=== PATIENT | female | born 1960 | race Caucasian/White ===

== ENCOUNTER 2018-07-26 12:49 | Inpatient (IN) | payer BC ==
[2018-07-26 13:48] LABS: Urine Blood 2+ (NEG); Urine Glucose NEGATIVE (NEG); Urine Protein TRACE (NEG); Urine pH 7.5 (5.0-7.0)
--- NOTE | 2018-07-26 13:56 | RAD REPORT ---
EXAM DESCRIPTION: RAD - Chest Single View - 07/26/2018 1:44 pm CLINICAL HISTORY: necrotizing lung mass Chest pain. COMPARISON: CHEST PA AND LAT 2 VIEW dated 07/24/2013; CHEST PA AND LAT 2 VIEW dated 07/16/2009 FINDINGS: Portable technique limits examination quality. Moderate-sized airspace opacity noted in the right mid lung, likely representing airspace consolidati on/pneumonia. The heart is normal in size. No displaced fractures.
[2018-07-26 14:01] LABS: Urine RBC >50 /HPF (NONE SEEN)
[2018-07-26 14:02] LABS: Urine Bacteria <20 /HPF (<20); Urine Culture Reflex Order NOT NEEDED
[2018-07-26 14:14] LABS: Protime INR 1.17
[2018-07-26 14:22] LABS: Absolute Lymphocytes (CBC) 1.8 K/uL (0.7-4.9); Absolute Monocytes 0.6 K/uL (0.1-1.3); Absolute Neutrophil 11.3 K/uL (1.8-8.0); Basophils % 0.7 % (0-1.3); Eosinophils % 0.7 % (0-4.4); Lymphocytes % 12.7 % (15.3-44.8); MPV 5.9 fL (7.6-11.3); Monocytes % 4.1 % (3.3-12.3); RBC Red Blood Cell Count 3.72 M/uL (3.86-4.86)
[2018-07-26 14:29] LABS: ALT/SGPT 16 U/L (12-78); AST/SGOT 16 U/L (15-37); Albumin 2.5 g/dL (3.4-5.0); Alkaline Phosphatase 111 U/L (45-117); BUN Blood Urea Nitrogen 8 mg/dL (7-18); Bicarbonate 30 mmol/L (21-32); Bilirubin Direct 0.1 mg/dL (0-0.2); Bilirubin Total 0.3 mg/dL (0.2-1.0); Creatine Phosphokinase 62 U/L (26-192); Glucose Level 100 mg/dL (74-106); Lipase 77 U/L (73-393); Potassium 3.6 mmol/L (3.5-5.1); Protein, Total 7.3 g/dL (6.4-8.2); Sodium Level 136 mmol/L (136-145); Troponin (Emerg Dept Use Only) < 0.02 ng/mL (0.0-0.045)
--- NOTE | 2018-07-26 15:29 | ER ---
Nurse's Notes [facility] Name: Judith Lyons Age: 57 yrs Sex: Female : 1960 Arrival Date: 07/26/2018 Time: 12:51 Bed 28 Private MD: Moisés Flores Diagnosis: Necrotizing Lung Mass Presentation: 07/26 13:02 Presenting complaint: Patient states: sent here for abnormal CT. Pt reports being sick sv for about 1.5 months. Transition of care: patient was not received from another setting of care. Onset of symptoms was May 2017. Care prior to arrival: None. 13:02 Method Of Arrival: Ambulatory sv 13:02 Acuity: MIGUELITO 3 sv 13:15 Risk Assessment: Do you want to hurt yourself or someone else?. Initial Sepsis Screen: hb Does the patient meet any 2 criteria? No. Patient's initial sepsis screen is negative. Does the patient have a suspected source of infection? No. Patient's initial sepsis screen is negative. Historical: - Allergies: 13:03 No Known Allergies; sv - PSHx: 13:03 neck surgery with 3 metal pins; ; sv - Immunization history:: Adult Immunizations up to date. - Social history:: Smoking status: Patient/guardian denies using tobacco. - Ebola Screening: : No symptoms or risks identified at this time. Screenin:43 Abuse screen: Denies threats or abuse. Denies injuries from another. Nutritional hb screening: No deficits noted. Tuberculosis screening: Intervention for positive screen: Dr. Flynn aware, isolation precautions implemented, pt and family educated with teach back verification. Fall Risk None identified. Assessment: 14:00 General: Appears in no apparent distress. Behavior is calm, cooperative. Pain: Denies hb pain. Neuro: Level of Consciousness is awake, alert, obeys commands, Oriented to person, place, time, situation. Cardiovascular: Heart tones S1 S2 present Capillary refill < 3 seconds Patient's skin is warm and dry. Respiratory: Airway is patent Respiratory effort is even, unlabored, Respiratory pattern is regular, symmetrical, Breath sounds are coarse. GI: No signs and/or symptoms were reported involving the gastrointestinal system. : No signs and/or symptoms were reported regarding the genitourinary system. EENT: No signs and/or symptoms were reported regarding the EENT system. Derm: Skin is intact, is healthy with good turgor. Musculoskeletal: No signs and/or symptoms reported regarding the musculoskeletal system. Capillary refill < 3 seconds. 14:16 Reassessment: Airborne Precautions implemented, pt and family educated re:isolation hb precautions, verbalized understanding. Family members relocated to ante room and donned appropriate PPE before reentering pt room. 15:00 Reassessment: Patient appears in no apparent distress at this time. No changes from hb previously documented assessment. Patient and/or family updated on plan of care and expected duration. Pain level reassessed. Patient is alert, oriented x 3, equal unlabored respirations, skin warm/dry/pink. 16:00 Reassessment: Patient appears in no apparent distress at this time. No changes from hb previously documented assessment. Patient and/or family updated on plan of care and expected duration. Pain level reassessed. Patient is alert, oriented x 3, equal unlabored respirations, skin warm/dry/pink. 16:44 Reassessment: Attempted to call report to floor, receiving nurse is unavailable at this hb time. 17:00 Reassessment: Patient appears in no apparent distress at this time. No changes from hb previously documented assessment. Patient and/or family updated on plan of care and expected duration. Pain level reassessed. Patient is alert, oriented x 3, equal unlabored respirations, skin warm/dry/pink. 17:29 Reassessment: Attempted to call report to floor, receiving nurse will call back in 5 hb per Tawny RESENDEZ. Vital Signs: 13:03 BP 123 / 74; Pulse 86; Resp 18; Temp 98.1; Pulse Ox 100% ; Weight 48.99 kg; Height 5 sv ft. 2 in. (157.48 cm); Pain 0/10; 14:00 BP 126 / 76; Pulse 86; Resp 17; Pulse Ox 100% on R/A; hb 15:00 BP 122 / 72; Pulse 72; Resp 18; Pulse Ox 99% on R/A; hb 16:00 BP 130 / 76; Pulse 88; Resp 18; Pulse Ox 100% on R/A; hb 13:03 Body Mass Index 19.75 (48.99 kg, 157.48 cm) sv ED Course: 12:51 Patient arrived in ED. as 12:52 Moisés Flores MD is Private Physician. as 13:03 Triage completed. sv 13:04 Chin Flynn MD is Attending Physician. kdr 13:04 Arm band placed on. sv 13:35 First set of blood cultures drawn by ny, Urine collected: clean catch specimen, cloudy. tm3 13:42 Chest Single View XRAY In Process Unspecified. EDMS 13:42 X-ray completed. Portable x-ray completed in exam room. Patient tolerated procedure jb2 well. 13:56 Anna Cooper, RN is Primary Nurse. hb 13:56 Patient has correct armband on for positive identification. Placed in gown. Bed in low hb position. Call light in reach. Side rails up X 1. 13:56 Inserted saline lock: 22 gauge in left forearm, using aseptic technique. Blood hb collected. 15:27 Angelo Borrero DO is Hospitalizing Provider. kdr 17:28 EKG done, by set up mold technician. reviewed by Chin Flynn MD. sm3 17:40 No provider procedures requiring assistance completed. Patient admitted, IV remains in hb place. Administered Medications: No medications were administered Outcome: 15:28 Decision to Hospitalize by Provider. kdr 17:40 Admitted to Tele accompanied by tech, family with patient, via wheelchair, room 417, with chart, Report called to Carla RESENDEZ 17:40 Condition: stable 17:40 Instructed on the need for admit, Demonstrated understanding of instructions. 18:00 Patient left the ED. hb Signatures: Dispatcher [employer] EDNE Gurmeet Virk tm3 Cathleen Nick RN RN Chin Flynn MD MD [facility] Gerry Martinez jb2 Jalyn Hale as Anna Cooper, RN RN Lisa Dodge sm3 Corrections: (The following items were deleted from the chart) 16:54 16:43 Tuberculosis screening: No symptoms or risk factors identified. hb hb
--- NOTE | 2018-07-26 15:29 | EDPHYS ---
Physician Documentation [facility] Name: Judith Lyons Age: 57 yrs Sex: Female : 1960 Arrival Date: 07/26/2018 Time: 12:51 Bed 28 Private MD: Moisés Flores ED Physician Chin Flynn HPI: 07/26 15:29 This 57 yrs old Female presents to ER via Ambulatory with complaints of kdr Abnormal CT. 15:29 The patient or guardian reports cough, difficulty breathing. Onset: The kdr symptoms/episode began/occurred gradually, 1.5 month(s) ago. Severity of symptoms: At their worst the symptoms were mild, moderate, just prior to arrival, in the emergency department the symptoms are unchanged. Modifying factors: The symptoms are alleviated by nothing, the symptoms are aggravated by exertion. Associated signs and symptoms: Pertinent positives:. The patient has not experienced similar symptoms in the past. The patient has been recently seen by a physician: The patient has been on two rounds of abx and still with URI s/s and productive cough. Also has intermittent fevers. Historical: - Allergies: 13:03 No Known Allergies; sv - PSHx: 13:03 neck surgery with 3 metal pins; ; sv - Immunization history:: Adult Immunizations up to date. - Social history:: Smoking status: Patient/guardian denies using tobacco. - Ebola Screening: : No symptoms or risks identified at this time. ROS: 15:29 Constitutional: Negative for fever, chills, and weight loss, Eyes: Negative for injury, kdr pain, redness, and discharge, Neck: Negative for injury, pain, and swelling, Cardiovascular: Negative for chest pain, palpitations, and edema, Abdomen/GI: Negative for abdominal pain, nausea, vomiting, diarrhea, and constipation, Back: Negative for injury and pain, : Negative for injury, bleeding, discharge, and swelling, MS/Extremity: Negative for injury and deformity, Skin: Negative for injury, rash, and discoloration, Neuro: Negative for headache, weakness, numbness, tingling, and seizure activity. Psych: Negative for depression, anxiety, suicide ideation, homicidal ideation, and hallucinations, Allergy/Immunology: Negative for hives, rash, and allergies, Endocrine: Negative for neck swelling, polydipsia, polyuria, polyphagia, and marked weight changes, Hematologic/Lymphatic: Negative for swollen nodes, abnormal bleeding, and unusual bruising. 15:29 Respiratory: Positive for cough, with white sputum, dyspnea on exertion, shortness of breath, on exertion. Exam: 15:29 Constitutional: This is a well developed, well nourished patient who is awake, alert, kdr and in no acute distress. Head/Face: Normocephalic, atraumatic. Eyes: Pupils equal round and reactive to light, extra-ocular motions intact. Lids and lashes normal. Conjunctiva and sclera are non-icteric and not injected. Cornea within normal limits. Periorbital areas with no swelling, redness, or edema. Neck: Trachea midline, no thyromegaly or masses palpated, and no cervical lymphadenopathy. Supple, full range of motion without nuchal rigidity, or vertebral point tenderness. No Meningismus. Chest/axilla: Normal chest wall appearance and motion. Nontender with no deformity. No lesions are appreciated. Cardiovascular: Regular rate and rhythm with a normal S1 and S2. No gallops, murmurs, or rubs. Normal PMI, no JVD. No pulse deficits. Abdomen/GI: Soft, non-tender, with normal bowel sounds. No distension or tympany. No guarding or rebound. No evidence of tenderness throughout. Back: No spinal tenderness. No costovertebral tenderness. Full range of motion. Skin: Warm, dry with normal turgor. Normal color with no rashes, no lesions, and no evidence of cellulitis. MS/ Extremity: Pulses equal, no cyanosis. Neurovascular intact. Full, normal range of motion. Neuro: Awake and alert, GCS 15, oriented to person, place, time, and situation. Cranial nerves II-XII grossly intact. Motor strength 5/5 in all extremities. Sensory grossly intact. Cerebellar exam normal. Normal gait. Psych: Awake, alert, with orientation to person, place and time. Behavior, mood, and affect are within normal limits. 15:29 Respiratory: the patient does not display signs of respiratory distress, Respirations: no acute changes, Breath sounds: rales, rhonchi, that are mild, are scattered. Vital Signs: 13:03 BP 123 / 74; Pulse 86; Resp 18; Temp 98.1; Pulse Ox 100% ; Weight 48.99 kg; Height 5 sv ft. 2 in. (157.48 cm); Pain 0/10; 14:00 BP 126 / 76; Pulse 86; Resp 17; Pulse Ox 100% on R/A; hb 15:00 BP 122 / 72; Pulse 72; Resp 18; Pulse Ox 99% on R/A; hb 16:00 BP 130 / 76; Pulse 88; Resp 18; Pulse Ox 100% on R/A; hb 13:03 Body Mass Index 19.75 (48.99 kg, 157.48 cm) sv MDM: 15:28 Patient medically screened. kdr 15:29 Data reviewed: vital signs, nurses notes, lab test result(s), radiologic studies. kdr Counseling: I had a detailed discussion with the patient and/or guardian regarding: the historical points, exam findings, and any diagnostic results supporting the discharge/admit diagnosis, lab results, radiology results. Physician consultation: Angelo Borrero DO. 07/26 13:22 Order name: Basic Metabolic Panel; Complete Time: 14:41 kdr 07/26 13:22 Order name: Blood Culture Adult (2) kdr 07/26 13:22 Order name: CBC with Diff; Complete Time: 14:41 kdr 07/26 13:22 Order name: Ckmb; Complete Time: 14:41 kdr 07/26 13:22 Order name: CPK; Complete Time: 14:41 kdr 07/26 13:22 Order name: Lactate; Complete Time: 14:28 kdr 07/26 13:22 Order name: LFT's; Complete Time: 14:41 kdr 07/26 13:22 Order name: Lipase; Complete Time: 14:41 kdr 07/26 13:22 Order name: Procalcitonin kdr 07/26 13:22 Order name: Protime (+inr); Complete Time: 14:28 kdr 07/26 13:22 Order name: Ptt, Activated; Complete Time: 14:28 kdr 07/26 13:22 Order name: Troponin (emerg Dept Use Only); Complete Time: 14:41 kdr 07/26 13:22 Order name: Urine Microscopic Only; Complete Time: 14:28 kdr 07/26 13:46 Order name: Urine Dipstick--Ancillary (enter results); Complete Time: 14:28 eb 07/26 13:22 Order name: Chest Single View XRAY; Complete Time: 14:28 kdr 07/26 13:22 Order name: Accucheck; Complete Time: 17: [facility] 07/26 13:22 Order name: Cardiac monitoring; Complete Time: 17: [facility] 07/26 13:22 Order name: EKG - Nurse/Tech; Complete Time: 17: [facility] 07/26 13:22 Order name: IV Saline Lock - Large Bore; Complete Time: 17: [facility] 07/26 13:22 Order name: Labs collected and sent; Complete Time: 17: [facility] 07/26 13:22 Order name: O2 Per Protocol; Complete Time: 17: [facility] 07/26 13:22 Order name: O2 Sat Monitoring; Complete Time: 17: [facility] 07/26 13:22 Order name: Urine Dipstick-Ancillary (obtain specimen); Complete Time: 17: [facility] 07/26 14:28 Order name: Sputum Culture [facility] 07/26 14:40 Order name: UDS kdr Administered Medications: No medications were administered Disposition: 07/26/18 15:28 Hospitalization ordered by Angelo Borrero for Inpatient Admission. Preliminary diagnosis is Necrotizing Lung Mass. - Bed requested for Telemetry/MedSurg (Inpatient). - Status is Inpatient Admission. hb - Condition is Fair. - Problem is an ongoing problem. - Symptoms have improved. UTI on Admission? No Signatures: Dispatcher [employer] Cathleen Bobo RN RN Chin Flynn MD MD [facility] Anna Cooper RN RN Vicky Walls Corrections: (The following items were deleted from the chart) 15:49 15:28 Hospitalization Ordered by Angelo Borrero DO for Inpatient Admission. Preliminary eb diagnosis is Necrotizing Lung Mass. Bed requested for Telemetry/MedSurg (Inpatient). Status is Inpatient Admission. Condition is Fair. Problem is an ongoing problem. Symptoms have improved. UTI on Admission? No. kdr 17:02 15:49 07/26/2018 15:28 Hospitalization Ordered by Angelo Borrero DO for Inpatient eb Admission. Preliminary diagnosis is Necrotizing Lung Mass. Bed requested for Telemetry/MedSurg (Inpatient). Status is Inpatient Admission. Condition is Fair. Problem is an ongoing problem. Symptoms have improved. UTI on Admission? No. eb 18:00 17:02 07/26/2018 15:28 Hospitalization Ordered by Angelo Borrero DO for Inpatient Admission. Preliminary diagnosis is Necrotizing Lung Mass. Bed requested for Telemetry/MedSurg (Inpatient). Status is Inpatient Admission. Condition is Fair. Problem is an ongoing problem. Symptoms have improved. UTI on Admission? No. eb
--- NOTE | 2018-07-26 15:54 | P.HP ---
Certification for Inpatient Patient admitted to: Inpatient With expected LOS: >2 Midnights Patient will require the following post-hospital care: None Practitioner: I am a practitioner with admitting privileges, knowledge of patient current condition, hospital course, and medical plan of care. Services: Services provided to patient in accordance with Admission requirements found in Title 42 Section 412.3 of the Code of Federal Regulations Patient History Date of Service: 07/26/18 Primary Care Provider: Dr. Flores Reason for admission: Shortness of breath, chest pain and cough History of Present Illness: 57-year-old female presented to emergency room with increasing shortness of breath, chest pain and cough. Patient with history of restless leg syndrome, tobacco abuse, GERD, neuropathy and anxiety. Patient reports that she start to have increasing cough and congestion at the end of May. She was seen by her PCP and found to have pneumonia on chest x-ray. She was given doxycycline for 10 days. She went back thereafter for followup. She continue to have increasing cough and chest pain. She was given another round of doxycycline and given Symbicort. She continued to have increased cough, congestion and shortness of breath. She occasionly would have chest pain to the right side. She reported some chills, fatigue and fever from time to time. Last week she had 1 episode of hempytosis. Today she was sent for CT scan. CT scan was abnormal. She was told to go to the ER for further evaluation. In the ER patient evaluated. White count 13.8, hemoglobin 9.5. Pro calcitonin unremarkable. BMP stable. Troponin unremarkable. CT chest angiogram scan revealed moderate size airspace consolidation in the right middle lobe and anterior aspect of the right lower lobe. Several rounded diminished fluid density collections present in the consolidated lung measuring about 4.9 x 3.4 cm in size. This likely represented areas of necrosis. No pneumothorax noted. Mild prominent lymph nodes were also present in the right hilum and pretracheal location measuring 11 mm in size. the patient was admitted for further evaluation. I saw the patient ER, she did not appear septic. She did have increased cough and mild chest pain. Case discussed with pulmonology who agreed with admission for further treatment and evaluation. Patient smokes about a pack per day for over 30 years. There is family history of esophageal cancer and Sanchez's esophagus. Previous records indicate history of DVT in 2013. She was treated with anti coagulation therapy. Allergies No Known Allergies Allergy (Verified 04/08/14 03:28) Home medications list reviewed: Yes Home Medications: Lisdexamfetamine Dimesylate [Vyvanse] 40 mg PO DAILY 04/08/14 Rivaroxaban [Xarelto*] 15 mg PO BID #42 tablet 04/08/14 - Past Medical/Surgical History Diabetic: No -: Restless leg syndrome -: Tobacco abuse -: Degenerative disc and joint disease -: GERD -: Neuropathy -: Anxiety -: History of DVT in 2013, treated -: Neck surgery -: -: Breast augmentation -: Fatty tumor removed to the left chest Psychosocial/ Personal History: Patient is - Family History Father -: Cancer (Esophageal cancer) Notes: Esophageal cancer Brother -: Cancer (Sanchez's esophagus) - Social History Smoking Status: Heavy Tobacco smoker (>10 cigarettes/day) Counseled patient to stop smoking for: less than 10 minutes Smoking therapy provided: Yes Patient receptive to therapy: Yes Alcohol use: Yes CD- Drugs: No Caffeine use: Yes Place of Residence: Home Review of Systems General: Fever, Chills, Sweats, Malaise, As per HPI Eyes: Unremarkable ENT: Unremarkable Respiratory: Cough, Shortness of Breath, SOB with Excertion, Sputum, As per HPI Cardiovascular: Chest Pain, Unremarkable Gastrointestinal: Nausea, As per HPI Musculoskeletal: Unremarkable Integumentary: Unremarkable Neurological: Unremarkable Lymphatics: Unremarkable Physical Examination - Physical Exam General: Alert, In no apparent distress, Oriented x3, Cooperative, Other (Very anxious) HEENT: Atraumatic, Normocephalic, Mucous membr. moist/pink Neck: Supple, No Thyromegaly Respiratory: Diminished (Diminished to the right side) Cardiovascular: Normal pulses, Regular rate/rhythm Gastrointestinal: Normal bowel sounds, Soft and benign, Non-distended, No tenderness, No masses, No rebound, No guarding Musculoskeletal: No contractures, No erythema, No tenderness, No warmth Integumentary: No tenderness/swelling, No erythema, No warmth, No cyanosis Neurological: Normal speech, Normal strength at 5/5 x4 extr, Normal tone, Normal affect - Studies Laboratory Data (last 24 hrs) 07/26/18 13:54: PT 13.7 H, INR 1.17, APTT 36.7 07/26/18 13:54: WBC 13.8 H, Hgb 9.5 L, Hct 29.0 L, Plt Count 646 H 07/26/18 13:54: Sodium 136, Potassium 3.6, BUN 8, Creatinine 0.42 L, Glucose 100 , Total Bilirubin 0.3, AST 16, ALT 16, Alkaline Phosphatase 111, Lipase 77 Assessment and Plan - Plan Impression: Right-sided chest pain, shortness of breath, cough with one episode of hemopytosis secondary to moderate size airspace consolidation to the right middle lobe and anterior right lower lobe with prominent lymph nodes to the right hilum and pretracheal location likely unresolved pneumonia verses other etiology, complicated with underlying COPD and tobacco abuse Anemia likely iron deficiency GERD Degenerative joint and disc disease with neuropathy Restless leg syndrome History of DVT in the past, treated Anxiety Plan: Right-sided chest pain, shortness of breath, cough with one episode of hemopytosis secondary to moderate size airspace consolidation to the right middle lobe and anterior right lower lobe with prominent lymph nodes to the right hilum and pretracheal location likely unresolved pneumonia verses other etiology, complicated with underlying COPD and tobacco abuse: Patient will be admitted for further evaluation and treatment. Case discussed with pulmonology. Will obtain blood, sputum cultures. Will obtain cultures for ABF. Will start IV vancomycin and Zosyn. Will continue to her monitor progress. Will maintain sats above 90%. Will start COPD medication. Tobacco cessation addressed in detail. Will recheck chest x-ray and lab tomorrow. Await further recommendations from pulmonology. If no improvement patient may require bronchoscopy. Anemia likely iron deficiency: Will evaluate for iron deficiency anemia. GERD: Will provide Protonix. Family history of Sanchez's esophagus and esophageal cancer noted. Degenerative joint and disc disease with neuropathy: Restart gabapentin. Restless leg syndrome: Will need to restart home medication-Mirapex History of DVT in the past, treated: Try to obtain more information. On previous information PCP was to get evaluation for autoimmune disease. Anxiety: Will provide medication. Discharge Plan: Home Plan to discharge in: Greater than 2 days - Advance Directives Does patient have a Living Will: No Does patient have a Durable POA for Healthcare: No - Code Status/Comfort Care Code Status Assessed: Yes (Patient full code.) Time Spent Managing Pts Care (In Minutes): 55
[2018-07-26] MEDS ORDERED: ONDANSETRON 4 MG/2 ML VIAL IV PRN (17:51)
[2018-07-26] MEDS ORDERED: ALBUTEROL 2.5 MG/3 ML NEB SOL NEB PRN (17:51)
[2018-07-26] MEDS ORDERED: BENZONATATE 100 MG CAP PO PRN (17:51)
[2018-07-26] MEDS ORDERED: ACETAMINOPHEN 500 MG TAB PO PRN (17:51)
[2018-07-26] MEDS ORDERED: ALPRAZOLAM 0.25 MG TABLET PO PRN (17:51)
[2018-07-26] MEDS: ENOXAPARIN 40 MG/0.4 ML SQ SCH (18:00)
[2018-07-26 18:38] LABS: Ferritin 180.2 ng/mL (8-388); Thyroid Stimulating Hormone 1.83 uIU/mL (0.360-3.740)
[2018-07-26 18:43] VITALS: BMI 19.2
[2018-07-26] MEDS: PIPER/TAZO/NS 3.375gm 3.375 GM/100 ML BAG IVPB SCH (18:45)
[2018-07-26] MEDS: NA CHLORIDE 0.9% 1,000 ML IV SCH (18:45)
[2018-07-26] MEDS: ARFORMOTEROL TARTRATE 15 MCG/2 ML VIAL.NEB NEB SCH (20:00)
[2018-07-26] MEDS ORDERED: VANCOMYCIN 1.25 GM in NA CHLORIDE 0.9% 250 ML IVPB ONE (21:00)
[2018-07-26] MEDS: GABAPENTIN 300 MG CAP PO SCH (21:15)
[2018-07-26] MEDS: PRAMIPEXOLE 1 MG TAB PO SCH (21:15)
[2018-07-26] MEDS: GUAIFENESIN 600 MG SA TAB PO SCH (21:16)
[2018-07-27] MEDS: PIPER/TAZO/NS 3.375gm 3.375 GM/100 ML BAG IVPB SCH ×3 (01:05→16:53)
[2018-07-27 06:02] LABS: BUN Blood Urea Nitrogen 6 mg/dL (7-18); Bicarbonate 29 mmol/L (21-32); Glucose Level 89 mg/dL (74-106); Magnesium 1.7 mg/dL (1.8-2.4); Potassium 3.7 mmol/L (3.5-5.1); Sodium Level 137 mmol/L (136-145)
[2018-07-27 06:10] LABS: Absolute Lymphocytes (CBC) 2.3 K/uL (0.7-4.9); Absolute Monocytes 0.6 K/uL (0.1-1.3); Absolute Neutrophil 8.2 K/uL (1.8-8.0); Basophils % 1.2 % (0-1.3); Eosinophils % 1.4 % (0-4.4); Hematocrit 29.5 % (36.0-45.0); Lymphocytes % 19.9 % (15.3-44.8); MPV 6.3 fL (7.6-11.3); RBC Red Blood Cell Count 3.84 M/uL (3.86-4.86)
[2018-07-27] MEDS: NA CHLORIDE 0.9% 1,000 ML IV SCH (07:11)
--- NOTE | 2018-07-27 07:15 | EKG ---
Test Date: 2018-07-26 Test Time: 17:11:10 Patient Relations Specialist: MONY MEASUREMENT RESULTS: Intervals: Rate: 73 SD: 144 QRSD: 90 QT: 380 QTc: 418 [place]: P: 66 SD: 144 QRS: 51 T: 61 INTERPRETIVE STATEMENTS: Normal sinus rhythm Normal ECG Compared to ECG 04/07/2014 23:06:42 ST (T wave) deviation no longer present Electronically Signed On 07-27-18 07:14:57 PHARMACY DISTRICT MANAGER by Morro Brewer
[2018-07-27] MEDS: PANTOPRAZOLE 40MG TABLET PO SCH ×2 (07:30→09:17)
[2018-07-27] MEDS ORDERED: MAGNESIUM SULFATE 1 gm IVPB 1 GM/100 ML BAG IV ONE (07:41)
[2018-07-27] MEDS ORDERED: POTASSIUM CL SA 10 MEQ TAB PO ONE (08:00)
[2018-07-27] MEDS: IPRATROPIUM BROM 0.5MG/2.5ML NEB PRN ×2 (08:02→19:55)
[2018-07-27] MEDS: ARFORMOTEROL TARTRATE 15 MCG/2 ML VIAL.NEB NEB SCH ×2 (08:02→19:55)
[2018-07-27 08:04] LABS: Barbiturates NEGATIVE (NEGATIVE); Benzodiazepines NEGATIVE (NEGATIVE); Cocaine NEGATIVE (NEGATIVE); METHAMPHETAM POSITIVE (NEGATIVE); Methadone NEGATIVE (NEGATIVE); Opiates NEGATIVE (NEGATIVE); Phencyclidine NEGATIVE (NEGATIVE); THC Cannibis POSITIVE (NEGATIVE)
--- NOTE | 2018-07-27 08:06 | RAD REPORT ---
EXAM DESCRIPTION: RAD - Chest Pa And Lat (2 Views) - 07/27/2018 6:29 am CLINICAL HISTORY: Lung mass, shortness of breath COMPARISON: AP chest July 26, CT chest July 26 TECHNIQUE: PA and lateral views of the chest were obtained. FINDINGS: The lungs are normal volume. There is baseline hyperexpansion and scattered fibrotic anderson e. Mass density at the right hilum extending into the right upper lobe has not changed. Heart size is normal and central vasculature is within normal limits. No pleural effusion or pneumothorax seen. No acute bony finding noted. No aortic abnormality. IMPRESSION: Right lung field mass density stable from prior day study. No new or progressive finding .
[2018-07-27] MEDS: DULOXETINE 30 MG CAP PO SCH (09:17)
[2018-07-27] MEDS: GABAPENTIN 300 MG CAP PO SCH ×2 (09:17→21:00)
[2018-07-27] MEDS: ENOXAPARIN 40 MG/0.4 ML SQ SCH (09:18)
[2018-07-27] MEDS: GUAIFENESIN 600 MG SA TAB PO SCH ×2 (09:20→22:04)
[2018-07-27 09:53] VITALS: O2SAT 97
[2018-07-27] MEDS: VANCOMYCIN/NS 1 gm 1 GM/250 ML BAG IV SCH ×2 (11:26→22:05)
--- NOTE | 2018-07-27 13:21 | P.PN ---
Subjective Date of Service: 07/27/18 Primary Care Provider: Dr. Flores Chief Complaint: Shortness of breath, chest pain and cough Subjective: Improving Physical Examination - Vital Signs Temperature: 99.7 F Blood Pressure: 108/51 Pulse: 79 Respirations: 20 Pulse Ox (%): 97 - Physical Exam General: Alert, In no apparent distress, Oriented x3, Cooperative HEENT: Atraumatic Neck: Supple Respiratory: Clear to auscultation bilaterally, Normal air movement Cardiovascular: Normal pulses, Regular rate/rhythm Gastrointestinal: Normal bowel sounds, Soft and benign, Non-distended, No tenderness, No masses, No rebound, No guarding Musculoskeletal: No erythema, No tenderness, No warmth Integumentary: No tenderness/swelling, No erythema, No warmth, No cyanosis Neurological: Normal speech, Normal strength at 5/5 x4 extr, Normal tone, Normal affect - Studies Laboratory Data (last 24 hrs) 07/26/18 13:54: PT 13.7 H, INR 1.17, APTT 36.7 07/26/18 13:54: WBC 13.8 H, Hgb 9.5 L, Hct 29.0 L, Plt Count 646 H 07/26/18 13:54: Sodium 136, Potassium 3.6, BUN 8, Creatinine 0.42 L, Glucose 100 , Total Bilirubin 0.3, AST 16, ALT 16, Alkaline Phosphatase 111, Lipase 77 Medications List Reviewed: Yes Assessment & Plan Discharge Plan: Home Plan to discharge in: 24 Hours Physician Review Additional Text: Impression: Right-sided chest pain, shortness of breath, cough with one episode of hemopytosis secondary to moderate size airspace consolidation to the right middle lobe and anterior right lower lobe with prominent lymph nodes to the right hilum and pretracheal location likely unresolved pneumonia verses other etiology, complicated with underlying COPD and tobacco abuse Anemia likely iron deficiency GERD 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 X-ray stable. Will discuss with pulmonology. Sputum cultures obtained. Likely discharge in the next 1-2 days. Anemia likely iron deficiency: Patient with iron deficiency. Will start iron supplementation GERD: Will provide Protonix. Family history of Sanchez's esophagus and esophageal cancer noted. 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 Restless leg syndrome: Continue with home medication History of DVT in the past, treated: Try to obtain more information. On previous information PCP was to get evaluation for autoimmune disease. Anxiety: Will provide medication. Time Spent Managing Pts Care (In Minutes): 55
[2018-07-27] MEDS ORDERED: MELATONIN 5 MG TABLET PO PRN (13:30)
[2018-07-27] MEDS ORDERED: HOME MED 1 EA UNK (Gabapentin [Gabapentin] 600 MG) PO SCH (14:00)
[2018-07-27] MEDS: PRAMIPEXOLE 1 MG TAB PO SCH (21:00)
[2018-07-27] MEDS: FERROUS SULFATE 325 MG TAB PO SCH (22:04)
[2018-07-28] MEDS: PIPER/TAZO/NS 3.375gm 3.375 GM/100 ML BAG IVPB SCH ×2 (00:26→10:02)
[2018-07-28 05:59] LABS: Absolute Lymphocytes (CBC) 2.2 K/uL (0.7-4.9); Absolute Monocytes 0.6 K/uL (0.1-1.3); Absolute Neutrophil 9.8 K/uL (1.8-8.0); Eosinophils % 1.4 % (0-4.4); Hematocrit 27.2 % (36.0-45.0); Lymphocytes % 17.2 % (15.3-44.8); MPV 6.1 fL (7.6-11.3); Monocytes % 4.9 % (3.3-12.3); RBC Red Blood Cell Count 3.51 M/uL (3.86-4.86)
[2018-07-28 06:16] LABS: BUN Blood Urea Nitrogen 9 mg/dL (7-18); Bicarbonate 29 mmol/L (21-32); Glucose Level 87 mg/dL (74-106); Potassium 4.1 mmol/L (3.5-5.1); Sodium Level 138 mmol/L (136-145)
[2018-07-28] MEDS: ARFORMOTEROL TARTRATE 15 MCG/2 ML VIAL.NEB NEB SCH (08:00)
[2018-07-28] MEDS: PANTOPRAZOLE 40MG TABLET PO SCH (08:30)
[2018-07-28] MEDS: GUAIFENESIN 600 MG SA TAB PO SCH (10:00)
[2018-07-28] MEDS: DULOXETINE 30 MG CAP PO SCH (10:03)
[2018-07-28] MEDS: ENOXAPARIN 40 MG/0.4 ML SQ SCH (10:04)
[2018-07-28] MEDS: FERROUS SULFATE 325 MG TAB PO SCH (10:04)
[2018-07-28] MEDS: GABAPENTIN 300 MG CAP PO SCH (10:04)
[2018-07-28] MEDS: VANCOMYCIN/NS 1 gm 1 GM/250 ML BAG IV SCH (10:05)
--- NOTE | 2018-07-28 10:12 | P.DS ---
Admission Date: 07/26/18 Discharge Date: 07/28/18 Primary Care Provider: Dr. Flores Disposition: ROUTINE DISCHARGE Discharge Condition: GOOD Reason for Admission: Shortness of breath, chest pain and cough Consultations: Pulmonary-Dr. Ruiz Procedures: CXR: COMPARISON: AP chest July 26, CT chest July 26 TECHNIQUE: PA and lateral views of the chest were obtained. FINDINGS: The lungs are normal volume. There is baseline hyperexpansion and scattered fibrotic change. Mass density at the right hilum extending into the right upper lobe has not changed. Heart size is normal and central vasculature is within normal limits. No pleural effusion or pneumothorax seen. No acute bony finding noted. No aortic abnormality. IMPRESSION: Right lung field mass density stable from prior day study. No new or progressive finding. 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 Patient with history of restless leg syndrome, tobacco abuse, GERD, neuropathy and anxiety. Patient reports that she start to have increasing cough and congestion at the end of May. She was seen by her PCP and found to have pneumonia on chest x-ray. She was given doxycycline for 10 days. She went back thereafter for followup. She continue to have increasing cough and chest pain. She was given another round of doxycycline and given Symbicort. She continued to have increased cough, congestion and shortness of breath. She occasionly would have chest pain to the right side. She reported some chills, fatigue and fever from time to time. Last week she had 1 episode of hempytosis. Today she was sent for CT scan. CT scan was abnormal. She was told to go to the ER for further evaluation. In the ER patient evaluated. White count 13.8, hemoglobin 9.5. Pro calcitonin unremarkable. BMP stable. Troponin unremarkable. CT chest angiogram scan revealed moderate size airspace consolidation in the right middle lobe and anterior aspect of the right lower lobe. Several rounded diminished fluid density collections present in the consolidated lung measuring about 4.9 x 3.4 cm in size. This likely represented areas of necrosis. No pneumothorax noted. Mild prominent lymph nodes were also present in the right hilum and pretracheal location measuring 11 mm in size. the patient was admitted for further evaluation. I saw the patient ER, she did not appear septic. She did have increased cough and mild chest pain. Case discussed with pulmonology who agreed with admission for further treatment and evaluation. Patient smokes about a pack per day for over 30 years. There is family history of esophageal cancer and Sanchez's esophagus. Previous records indicate history of DVT in 2013. She was treated with anti coagulation therapy. Hospital Course: Patient presented with right-sided chest pain, shortness of breath and cough. She also had an episode of hemopytosis. This was related to a moderate sized airspace consolidation to the right middle lobe and anterior right lobe with prominent lymph nodes to the right hilum and pretracheal location secondary to likely unresolved strep. pneumonia. Patient had been treated recently with Doxycycline twice, but failed treatment. At discharge she does not require home oxygen. She is without any significant shortness of breath. Sputum cultures obtained. At discharge she will continue with Levaquin 750 mg daily for 7 days. The patient will also be provided with Mucinex 600 mg twice daily as needed for congestion, Tessalon Perles 100 mg 3 times a day, and Pro air 2 puffs 3 times a day as needed for shortness of breath. Recommend to follow up with pulmonology in 1-2 weeks to follow up this hospitalization. Recommend to recheck chest x-ray in 2-4 weeks to monitor resolution. Pulmonology to follow up on sputum cultures. Patient will need to be further evaluated for possible underlying COPD with her history of tobacco use as an outpatient. Recommend tobacco cessation at this time. Patient with iron deficiency anemia. Patient to be started on iron 325 mg 1 pill twice daily. Patient with history of GERD. Patient will continue Protonix 40 mg daily. There is a family history of Sanchez's esophagus and esophageal cancer. Will recommend patient to see GI for outpatient evaluation including EGD and colonoscopy. Recommend to recheck CBC in 2-4 weeks to monitor her progress. Patient with degenerative joint and disc disease with neuropathy. Patient will continue with Neurontin 600 mg 3 times a day. Further adjustment can be done by her PCP. Patient with restless leg syndrome. Patient will continue with Mirapex 1 mg at bedtime. Patient with depression and anxiety. Patient will continue with Cymbalta 30 mg daily. She also takes melatonin at bedtime. Patient also with adult attention deficit disorder. Patient may continue with Vyvanse. Follow up with her PCP to further monitor is recommended. Vital Signs/Physical Exam: Temp Pulse Resp BP Pulse Ox 98.2 F 77 18 107/49 L 97 07/28/18 08:00 07/28/18 08:00 07/28/18 08:00 07/28/18 08:00 07/28/18 08:00 General: Alert, In no apparent distress, Oriented x3, Cooperative HEENT: Atraumatic, Mucous membr. moist/pink Neck: Supple Respiratory: Clear to auscultation bilaterally, Normal air movement Cardiovascular: Normal pulses, Regular rate/rhythm Gastrointestinal: Normal bowel sounds, Soft and benign, Non-distended, No tenderness, No masses, No rebound, No guarding Musculoskeletal: No erythema, No tenderness, No warmth Integumentary: No tenderness/swelling, No erythema, No warmth, No cyanosis Neurological: Normal speech, Normal strength at 5/5 x4 extr, Normal tone, Normal affect Laboratory Data at Discharge: WBC 13.0 K/uL (4.3-10.9) H D 07/28/18 05:23 Hgb 9.0 g/dL (12.0-15.0) L 07/28/18 05:23 Hct 27.2 % (36.0-45.0) L 07/28/18 05:23 Plt Count 594 K/uL (152-406) H 07/28/18 05:23 PT 13.7 SECONDS (9.5-12.5) H 07/26/18 13:54 INR 1.17 07/26/18 13:54 APTT 36.7 SECONDS (24.3-36.9) 07/26/18 13:54 Sodium 138 mmol/L (136-145) 07/28/18 05:23 Potassium 4.1 mmol/L (3.5-5.1) 07/28/18 05:23 BUN 9 mg/dL (7-18) 07/28/18 05:23 Creatinine 0.38 mg/dL (0.55-1.3) L 07/28/18 05:23 Glucose 87 mg/dL (74-106) 07/28/18 05:23 Magnesium 2.0 mg/dL (1.8-2.4) 07/28/18 05:23 Total Bilirubin 0.3 mg/dL (0.2-1.0) 07/26/18 13:54 AST 16 U/L (15-37) 07/26/18 13:54 ALT 16 U/L (12-78) 07/26/18 13:54 Alkaline Phosphatase 111 U/L (45-117) 07/26/18 13:54 Lipase 77 U/L (73-393) 07/26/18 13:54 Home Medications: Duloxetine [Cymbalta *] 30 mg PO BEDTIME 07/26/18 Gabapentin 600 mg PO TID 07/26/18 Lisdexamfetamine Dimesylate [Vyvanse] 50 mg PO DAILY 07/26/18 Melatonin 10 mg PO BEDTIME PRN 07/26/18 Pantoprazole [Protonix Tab*] 40 mg PO DAILY 07/26/18 Pramipexole [Mirapex*] 1 mg PO BEDTIME 07/26/18 Varenicline Tartrate [Chantix] 1 mg PO BID 07/26/18 Albuterol Sulfate [Proair Hfa] 2 puff IH TID PRN #1 hfa.aer.ad 07/28/18 Benzonatate [Tessalon Perle*] 100 mg PO TID PRN #15 cap 07/28/18 Ferrous Sulfate [Ferrous Sulfate*] 325 mg PO BID #60 tab 07/28/18 Guaifenesin [Mucinex] 600 mg PO BID #20 tab.er.12h 07/28/18 levoFLOXacin [Levaquin] 750 mg PO DAILY #7 tab 07/28/18 New Medications: Albuterol Sulfate [Proair Hfa] 2 puff IH TID PRN #1 hfa.aer.ad PRN Reason: Shortness Of Breath Benzonatate [Tessalon Perle*] 100 mg PO TID PRN #15 cap PRN Reason: Cough Ferrous Sulfate [Ferrous Sulfate*] 325 mg PO BID #60 tab Guaifenesin [Mucinex] 600 mg PO BID #20 tab.er.12h levoFLOXacin [Levaquin] 750 mg PO DAILY #7 tab Patient Discharge Instructions: 1. Patient follow up with her PCP in 1 week to follow up this hospitalization. 2. Patient presented with right-sided chest pain, shortness of breath and cough. She also had an episode of hemopytosis. This was related to a moderate sized airspace consolidation to the right middle lobe and anterior right lobe with prominent lymph nodes to the right hilum and pretracheal location secondary to likely unresolved strep. pneumonia. Patient had been treated recently with Doxycycline twice, but failed treatment. At discharge she does not require home oxygen. She is without any significant shortness of breath. Sputum cultures obtained. At discharge she will continue with Levaquin 750 mg daily for 7 days. The patient will also be provided with Mucinex 600 mg twice daily as needed for congestion, Tessalon Perles 100 mg 3 times a day, and Pro air 2 puffs 3 times a day as needed for shortness of breath. Recommend to follow up with pulmonology in 1-2 weeks to follow up this hospitalization. Recommend to recheck chest x-ray in 2-4 weeks to monitor resolution. Pulmonology to follow up on sputum cultures. Patient will need to be further evaluated for possible underlying COPD with her history of tobacco use as an outpatient. Recommend tobacco cessation at this time. 3. Patient with iron deficiency anemia. Patient to be started on iron 325 mg 1 pill twice daily. Patient with history of GERD. Patient will continue Protonix 40 mg daily. There is a family history of Sanchez's esophagus and esophageal cancer. Will recommend patient to see GI for outpatient evaluation including EGD and colonoscopy. Recommend to recheck CBC in 2-4 weeks to monitor her progress. 4. Patient with degenerative joint and disc disease with neuropathy. Patient will continue with Neurontin 600 mg 3 times a day. Further adjustment can be done by her PCP. 5. Patient with restless leg syndrome. Patient will continue with Mirapex 1 mg at bedtime. 6. Patient with depression and anxiety. Patient will continue with Cymbalta 30 mg daily. She also takes melatonin at bedtime. 7. Patient also with adult attention deficit disorder. Patient may continue with Vyvanse. Follow up with her PCP to further monitor is recommended. Diet: AHA Activity: Ad cheryl Time spent managing pt's care (in minutes): 55
--- NOTE | 2018-07-28 10:27 | P.CNS ---
Date of Consult: 07/28/18 Primary Care Provider: Dr. Flores Chief Complaint: Shortness of breath, chest pain and cough History of Present Illness: Patient is 57 years of age has been sick since the end of April started having cough with some flu-like symptoms had severe right-sided chest discomfort went to see Dr. jeter and was treated with 10 days of doxycycline did not improve or lower chest pain did improve somewhat she became worse again and was treated with another course of doxycycline again she got worse started having some intermittent fevers with night sweats and nonproductive cough. No hemoptysis patient is an active smoker and appeared in the hospital with right upper lobe consolidation treated with IV antibiotics feels much better patient is an active smoker Allergies No Known Allergies Allergy (Verified 04/08/14 03:28) Home Medications: Duloxetine [Cymbalta *] 30 mg PO BEDTIME 07/26/18 Gabapentin 600 mg PO TID 07/26/18 Lisdexamfetamine Dimesylate [Vyvanse] 50 mg PO DAILY 07/26/18 Melatonin 10 mg PO BEDTIME PRN 07/26/18 Pantoprazole [Protonix Tab*] 40 mg PO DAILY 07/26/18 Pramipexole [Mirapex*] 1 mg PO BEDTIME 07/26/18 Varenicline Tartrate [Chantix] 1 mg PO BID 07/26/18 Albuterol Sulfate [Proair Hfa] 2 puff IH TID PRN #1 hfa.aer.ad 07/28/18 Benzonatate [Tessalon Perle*] 100 mg PO TID PRN #15 cap 07/28/18 Ferrous Sulfate [Ferrous Sulfate*] 325 mg PO BID #60 tab 07/28/18 Guaifenesin [Mucinex] 600 mg PO BID #20 tab.er.12h 07/28/18 levoFLOXacin [Levaquin] 750 mg PO DAILY #7 tab 07/28/18 - Past Medical/Surgical History Diabetic: No -: Restless leg syndrome -: Tobacco abuse -: Degenerative disc and joint disease -: GERD -: Neuropathy -: Anxiety -: History of DVT in 2013, treated -: COPD -: Neck surgery -: -: Breast augmentation -: Fatty tumor removed to the left chest Psychosocial/ Personal History: Patient is - Family History Brother Medical History: Cancer Father Medical History: Cancer Notes: Esophageal cancer - Social History Smoking Status: Current some day smoker Alcohol use: Yes CD- Drugs: No Caffeine use: Yes Place of Residence: Home Review of Systems General: Weakness Respiratory: Cough, Shortness of Breath Neurological: Other (Patient complained of paresthesias in her feet) Physical Examination Temp Pulse Resp BP Pulse Ox 98.2 F 77 18 107/49 L 97 07/28/18 08:00 07/28/18 08:00 07/28/18 08:00 07/28/18 08:00 07/28/18 08:00 General: Alert, In no apparent distress, Oriented x3 Neck: Supple Respiratory: Clear to auscultation bilaterally Cardiovascular: No edema, Regular rate/rhythm, Normal S1 S2 Gastrointestinal: Normal bowel sounds, Soft and benign - Problems (1) Pneumonia Current Visit: Yes Status: Acute Plan: Patient is 57 years of age admitted with right upper lobe consolidation this started in April was treated with 2 courses of doxycycline no relief doing much better since admission white count is mildly elevated patient is active smoker cultures are all negative patient can be discharged home at least 10 days of levofloxacin 750 mg daily she was already treated with 20 days of doxycycline she will need a followup chest x-ray in 2 weeks to follow up with me after that patient has Symbicort at home vital signs all stable Qualifiers: Pneumonia type: due to unspecified organism
[2018-07-28] MEDS ORDERED: levoFLOXacin 750 MG TAB PO ONE (11:00)
--- NOTE | 2018-07-28 11:22 | RAD REPORT ---
EXAM DESCRIPTION: RAD - Chest Pa And Lat (2 Views) - 07/28/2018 9:05 am CLINICAL HISTORY: Follow up pneumonia Chest pain. COMPARISON: Chest Pa And Lat (2 Views) dated 07/27/2018; Chest Single View dated 07/26/2018; CHEST PA AN D LAT 2 VIEW dated 07/24/2013; CHEST PA AND LAT 2 VIEW dated 07/16/2009 FINDINGS: Little overall change is seen in the right mid lung parenchymal opacification since compar ative study. The heart is normal in size. No displaced fractures. Hardware plate is present cervical spine. IMPRESSION: Stable examination since 07/27/2018.
[2018-07-28 12:52] VITALS: BP 119/59; TEMP 97.8
== END 2018-07-28 13:02 | disposition home or self-care (01) | DRG 194 ==
LOC: ER 12:49 → ERHOLD 15:22 → 4TH 17:39
PROVIDERS: ADMIT Family Medicine; ATTEND Family Medicine
DX: J15.4 Pneumonia due to other streptococci (principal); R04.2 Hemoptysis; F17.210 Nicotine dependence, cigarettes, uncomplicated; J44.9 Chronic obstructive pulmonary disease, unspecified; D50.9 Iron deficiency anemia, unspecified; K21.9 Gastro-esophageal reflux disease without esophagitis; G25.81 Restless legs syndrome; Z86.718 Personal history of other venous thrombosis and embolism; F32.9 Major depressive disorder, single episode, unspecified; F41.9 Anxiety disorder, unspecified; F98.8 Other specified behavioral and emotional disorders with onset usually occurring in childhood and adolescence; G62.9 Polyneuropathy, unspecified
CPT/HCPCS: 36415; 71045; 71046; 80048; 80076; 80202; 80307; 81003; 81015; 82550; 82553; 82607; 82728; 83540; 83605; 83690; 83735; 84145; 84439; 84443; 84466; 84484; 85025; 85610; 85730; 87015; 87040; 87116; 87206; 93005; 94640; 99285; J1650; J2543; J3370; J3475; J7030; J7605

== ENCOUNTER 2019-12-14 09:14 | Emergency (ER) | payer BC ==
[2019-12-14] MEDS ORDERED: KETOROLAC 30 MG/ML INJ ONE (10:34)
[2019-12-14] MEDS ORDERED: DIAZEPAM 5 MG TABLET ONE (10:34)
[2019-12-14] MEDS ORDERED: ONDANSETRON 4 MG/2 ML VIAL ONE (10:34)
[2019-12-14] MEDS ORDERED: dexAMETHasone 10 MG/ML VIAL ONE (10:34)
[2019-12-14] MEDS ORDERED: MORPHINE 4 MG/ML SYR ONE (10:34)
[2019-12-14] MEDS ORDERED: NA CHLORIDE 0.9% 500 ML ONE ×2 (10:35→11:01)
[2019-12-14 10:58] LABS: Absolute Lymphocytes (CBC) 1.3 K/uL (0.7-4.9); Basophils % 0.7 % (0-1.3); Hematocrit 40.4 % (36.0-45.0); Lymphocytes % 6.7 % (15.3-44.8); MPV 7.3 fL (7.6-11.3); RBC Red Blood Cell Count 4.62 M/uL (3.86-4.86)
[2019-12-14] MEDS ORDERED: HYDROMORPHONE HCL 1 MG/ML INJ ONE (11:01)
[2019-12-14 11:05] LABS: BUN Blood Urea Nitrogen 20 mg/dL (7-18); Bicarbonate 29 mmol/L (21-32); Glucose Level 107 mg/dL (74-106); Potassium 4.2 mmol/L (3.5-5.1); Sodium Level 141 mmol/L (136-145)
[2019-12-14 11:25] LABS: Urine Blood 1+ (NEG); Urine Glucose NEGATIVE (NEG); Urine Protein NEGATIVE (NEG)
--- NOTE | 2019-12-14 11:39 | RAD REPORT ---
EXAM DESCRIPTION: CTSpine Lumbar Wo Con12/14/2019 11:07 am CLINICAL HISTORY: Back pain, radiculopathy COMPARISON: None TECHNIQUE: Computed axial tomography lumbar spine was obtained with coronal and sagittal reconstruct ion. All CT scans are performed using dose optimization technique as appropriate and may include automated exposure control or mA/KV adjustment according to patient size. FINDINGS: No fracture is seen. No dislocation is noted. Disc bulge, ligamentum flavum and facet hypertrophy L4-5. Thecal sac measures 8 millimeters. Mild to moderate narrowing left neural foramina Left paracentral structure L5-S1. Facet hypertrophy. Moderate narrowing left neural foramina No renal calculus. No hydronephrosis IMPRESSION: Spondylosis L4-5 resulting in mild central spinal stenosis Left paracentral structure L5-S1 probably a disc herniation. MRI is recommended further evaluation
[2019-12-14 11:40] LABS: Blood Morphology Comment NOT SEEN (NOT SEEN); Platelet Estimate ADEQ; Urine White Blood Cell Casts OK
--- NOTE | 2019-12-14 11:42 | RAD REPORT ---
EXAM DESCRIPTION: [facility] Single View12/14/2019 11:19 am CLINICAL HISTORY: cough COMPARISON: 2018 FINDINGS: Patchy right lung opacities probably scarring from prior pneumonia Lungs probably are clear of acute infiltrate The heart is normal size IMPRESSION: No acute abnormalities displayed
--- NOTE | 2019-12-14 11:56 | EDPHYS ---
Physician Documentation [facility] Name: Judith Lyons Age: 58 yrs Sex: Female : 1960 Arrival Date: 12/14/2019 Time: 09:16 Bed 19 Private MD: Moisés Flores ED Physician Erwin Molina HPI: 12/13 10:16 This 58 yrs old Female presents to ER via Ambulatory with complaints of Back diego Pain. 10:16 The patient presents with pain that is acute, with no known mechanism of injury. The diego symptoms are located in the low back. Onset: The symptoms/episode began/occurred 2 day(s) ago. The pain radiates to the left leg. Associated signs and symptoms: The patient has no apparent associated signs or symptoms. The problem was sustained from unknown cause. Modifying factors: The patient symptoms are alleviated by. Severity of symptoms: At their worst the symptoms were mild. The patient has not experienced similar symptoms in the past. Historical: - Allergies: 09:37 No Known Allergies; hb - Home Meds: 09:37 gabapentin oral oral [Active]; Melatonin Oral [Active]; Vyvanse oral oral [Active]; hb unknown GERD medication [Active]; - PMHx: 09:37 RLS; GERD; hb - PSHx: 09:37 neck surgery with 3 metal pins; ; hb - Immunization history:: Adult Immunizations up to date. - Social history:: Smoking status: Patient denies any tobacco usage or history of. ROS: 10:18 Constitutional: Negative for fever, chills, and weight loss, Eyes: Negative for injury, diego pain, redness, and discharge, ENT: Negative for injury, pain, and discharge, Neck: Negative for injury, pain, and swelling, Cardiovascular: Negative for chest pain, palpitations, and edema, Respiratory: Negative for shortness of breath, cough, wheezing, and pleuritic chest pain, Abdomen/GI: Negative for abdominal pain, nausea, vomiting, diarrhea, and constipation, : Negative for injury, bleeding, discharge, and swelling, MS/Extremity: Negative for injury and deformity, Skin: Negative for injury, rash, and discoloration, Neuro: Negative for headache, weakness, numbness, tingling, and seizure, Psych: Negative for depression, anxiety, suicide ideation, homicidal ideation, and hallucinations, Allergy/Immunology: Negative for hives, rash, and allergies, Endocrine: Negative for neck swelling, polydipsia, polyuria, polyphagia, and marked weight changes, Hematologic/Lymphatic: Negative for swollen nodes, abnormal bleeding, and unusual bruising. 10:18 Back: Positive for decreased range of motion, pain at rest, pain with movement, radiated pain, of the left low back. Exam: 10:18 Constitutional: This is a well developed, well nourished patient who is awake, alert, diego and in no acute distress. Head/Face: Normocephalic, atraumatic. Eyes: Pupils equal round and reactive to light, extra-ocular motions intact. Lids and lashes normal. Conjunctiva and sclera are non-icteric and not injected. Cornea within normal limits. Periorbital areas with no swelling, redness, or edema. ENT: Nares patent. No nasal discharge, no septal abnormalities noted. Tympanic membranes are normal and external auditory canals are clear. Oropharynx with no redness, swelling, or masses, exudates, or evidence of obstruction, uvula midline. Mucous membranes moist. Neck: Trachea midline, no thyromegaly or masses palpated, and no cervical lymphadenopathy. Supple, full range of motion without nuchal rigidity, or vertebral point tenderness. No Meningismus. Chest/axilla: Normal chest wall appearance and motion. Nontender with no deformity. No lesions are appreciated. Cardiovascular: Regular rate and rhythm with a normal S1 and S2. No gallops, murmurs, or rubs. Normal PMI, no JVD. No pulse deficits. Respiratory: Lungs have equal breath sounds bilaterally, clear to auscultation and percussion. No rales, rhonchi or wheezes noted. No increased work of breathing, no retractions or nasal flaring. Abdomen/GI: Soft, non-tender, with normal bowel sounds. No distension or tympany. No guarding or rebound. No evidence of tenderness throughout. Female : Normal external genitalia. Skin: Warm, dry with normal turgor. Normal color with no rashes, no lesions, and no evidence of cellulitis. MS/ Extremity: Pulses equal, no cyanosis. Neurovascular intact. Full, normal range of motion. Neuro: Awake and alert, GCS 15, oriented to person, place, time, and situation. Cranial nerves II-XII grossly intact. Motor strength 5/5 in all extremities. Sensory grossly intact. Cerebellar exam normal. Normal gait. Psych: Awake, alert, with orientation to person, place and time. Behavior, mood, and affect are within normal limits. 10:18 Back: pain, that is moderate, that is severe, ROM is painful, normal spinal alignment noted, CVA tenderness, is absent, vertebral tenderness, is not appreciated, muscle spasm, is appreciated in the right mid back and right low back. Vital Signs: 09:34 BP 141 / 98; Pulse 86; Resp 16; Temp 97.8; Pulse Ox 100% ; Weight 53.07 kg; Height 5 hb ft. 1 in. (154.94 cm); Pain 10/10; 10:30 BP 131 / 73; Pulse 77; Resp 16; Pulse Ox 99% ; hb 12:00 BP 127 / 98; Pulse 64; Resp 15; Pulse Ox 97% on R/A; hb 12:56 BP 105 / 62; Pulse 76; Resp 18; Temp 98(TE); Pulse Ox 98% ; Pain 5/10; ks7 12:59 Pulse Ox 98% ; Pain 5/10; ks7 09:34 Body Mass Index 22.11 (53.07 kg, 154.94 cm) hb MDM: 09:31 Patient medically screened. [facility] 10:20 Data reviewed: vital signs, nurses notes, lab test result(s), CBC, electrolytes, diego urinalysis, radiologic studies, CT scan. 11:50 Differential diagnosis: chronic back pain, Osteoarthritis Osteomyelitis sprain, diego vertebral fracture. Data interpreted: drafter cartographic: rate is 86 beats/min, rhythm is regular, Pulse oximetry: on room air is 100 %. Counseling: I had a detailed discussion with the patient and/or guardian regarding: the historical points, exam findings, and any diagnostic results supporting the discharge/admit diagnosis, lab results, radiology results, the need for outpatient follow up, for definitive care, a neurosurgeon. ED course: no uri symptoms, no fever , no chills, no urinary symptoms. 12/13 10:16 Order name: CBC with Diff [facility] 12/13 10:16 Order name: Chem 7; Complete Time: 11:05 [facility] 12/13 10:18 Order name: CT Lumbar Spine Wo Con; Complete Time: 11:47 [facility] 12/13 10:41 Order name: Urine Dipstick--Ancillary (enter results); Complete Time: 11:30 eb 12/13 11:04 Order name: ESR; Complete Time: 11:47 [facility] 12/13 11:41 Order name: CBC Smear Scan; Complete Time: 11:47 EDMS 12/13 11:05 Order name: Chest Single View XRAY; Complete Time: 11:47 [facility] 12/13 10:16 Order name: Urine Dipstick-Ancillary (obtain specimen); Complete Time: 10:48 [facility] Administered Medications: Discontinued: NS 0.9% 500 ml IV at bolus once 10:30 Drug: NS 0.9% 500 ml Route: IV; Rate: bolus; Site: right antecubital; hb 10:30 Drug: TORadol 30 mg Route: IVP; Site: right antecubital; hb 10:59 Follow up: Response: No adverse reaction hb 10:30 Drug: Decadron - Dexamethasone 10 mg Route: IVP; Site: right antecubital; hb 10:59 Follow up: Response: No adverse reaction hb 10:30 Drug: morphine 4 mg Route: IVP; Site: right antecubital; hb 10:58 Follow up: Response: No adverse reaction hb 10:30 Drug: Zofran (Ondansetron) 4 mg Route: IVP; Site: right antecubital; hb 10:58 Follow up: Response: No adverse reaction hb 10:30 Drug: Valium 5 mg Route: PO; hb 10:58 Follow up: Response: No adverse reaction hb 10:54 Drug: Dilaudid 1 mg Route: IVP; Site: right antecubital; hb 12:59 Follow up: Pulse Ox 98% ; Pain 5/10 Adult ks7 10:54 Drug: NS 0.9% 500 ml Route: IV; Rate: bolus; Site: right antecubital; hb Disposition: 12/14/19 11:55 Discharged to Home. Impression: Low back pain, Sciatica, left side, Elevated white blood cell count. - Condition is Stable. - Discharge Instructions: Back Pain, Adult, Musculoskeletal Pain, Sciatica, Back Pain, Adult, Glif-vs-Oqjo, Sciatica, Eqte-jy-Wkqv. - Prescriptions for Tylenol- Codeine #3 300-30 mg Oral Tablet - take 2 tablets by ORAL route every 6 hours As needed; 26 tablet. Medrol (Onel) 4 mg Oral Tablets, Dose Pack - take 1 tablet by ORAL route as directed - follow package instructions; 1 packet. Motrin IB 200 mg Oral Tablet - take 1 tablet by ORAL route every 6 hours As needed as needed with food; 30 tablet. Cyclobenzaprine 5 mg Oral Tablet - take 1 tablet by ORAL route 3 times per day As needed; 15 tablet. - Medication Reconciliation Form, Thank You Letter, Antibiotic Education, Prescription Opioid Use form. - Follow up: Moisés Flores; When: 2 - 3 days; Reason: Recheck today's complaints, Continuance of care, Re-evaluation by your physician. Follow up: Erick Ruiz MD; When: 2 - 3 days; Reason: Recheck today's complaints, Re-evaluation by your physician. - Problem is new. - Symptoms have improved. Signatures: Dispatcher [employer] EDErwin Lang MD MD cha Baxter, Heather, RN RN Marley Smallwood RN RN ks7 Corrections: (The following items were deleted from the chart) 11:56 11:55 12/14/2019 11:55 Discharged to Home. Impression: Low back pain; Sciatica, left diego side; Elevated white blood cell count. Condition is Stable. Discharge Instructions: Back Pain, Adult, Musculoskeletal Pain, Sciatica, Back Pain, Adult, Dljb-cn-Olvd, Sciatica, Ocbv-wr-Kels. Prescriptions for Tylenol-Codeine #3 300-30 mg Oral Tablet - take 2 tablets by ORAL route every 6 hours As needed; 26 tablet, Medrol (Onel) 4 mg Oral Tablets, Dose Pack - take 1 tablet by ORAL route as directed - follow package instructions; 1 packet, Motrin IB 200 mg Oral Tablet - take 1 tablet by ORAL route every 6 hours As needed as needed with food; 30 tablet, Cyclobenzaprine 5 mg Oral Tablet - take 1 tablet by ORAL route 3 times per day As needed; 15 tablet. and Forms are Medication Reconciliation Form, Thank You Letter, Antibiotic Education, Prescription Opioid Use. Follow up: Moisés Flores; When: 2 - 3 days; Reason: Recheck today's complaints, Continuance of care, Re-evaluation by your physician. Problem is new. Symptoms have improved. [facility] 13:43 11:56 12/14/2019 11:55 Discharged to Home. Impression: Low back pain; Sciatica, left ks7 side; Elevated white blood cell count. Condition is Stable. Discharge Instructions: Back Pain, Adult, Musculoskeletal Pain, Sciatica, Back Pain, Adult, Cxeg-fl-Ygjx, Sciatica, Tksi-et-Vjpr. Prescriptions for Tylenol-Codeine #3 300-30 mg Oral Tablet - take 2 tablets by ORAL route every 6 hours As needed; 26 tablet, Medrol (Onel) 4 mg Oral Tablets, Dose Pack - take 1 tablet by ORAL route as directed - follow package instructions; 1 packet, Motrin IB 200 mg Oral Tablet - take 1 tablet by ORAL route every 6 hours As needed as needed with food; 30 tablet, Cyclobenzaprine 5 mg Oral Tablet - take 1 tablet by ORAL route 3 times per day As needed; 15 tablet. and Forms are Medication Reconciliation Form, Thank You Letter, Antibiotic Education, Prescription Opioid Use. Follow up: Moisés Flores; When: 2 - 3 days; Reason: Recheck today's complaints, Continuance of care, Re-evaluation by your physician. Follow up: Erick Ruiz; When: 2 - 3 days; Reason: Recheck today's complaints, Re-evaluation by your physician. Problem is new. Symptoms have improved. diego
--- NOTE | 2019-12-14 11:56 | ER ---
Nurse's Notes [facility] Name: Judith Lyons Age: 58 yrs Sex: Female : 1960 Arrival Date: 12/14/2019 Time: 09:16 Bed 19 Private MD: Moisés Flores Diagnosis: Low back pain;Sciatica, left side;Elevated white blood cell count Presentation: 12/13 09:34 Chief complaint: Left low back pain x 5 days, pain became severe and radiates to left hb leg since last night. Denies injury. Coronavirus screen: Proceed with normal triage. Ebola Screen: No symptoms or risks identified at this time. Initial Sepsis Screen: Does the patient meet any 2 criteria? No. Patient's initial sepsis screen is negative. Does the patient have a suspected source of infection? No. Patient's initial sepsis screen is negative. Risk Assessment: Do you want to hurt yourself or someone else? Patient reports no desire to harm self or others. Onset of symptoms was December 09, 2019. 09:34 Method Of Arrival: Ambulatory hb 09:34 Acuity: MIGUELITO 4 hb 10:20 Acuity: MIGUELITO 3 hb Triage Assessment: 09:35 General: Appears in no apparent distress. uncomfortable, Behavior is cooperative, hb restless. Pain: Pain currently is 10 out of 10 on a pain scale. EENT: No signs and/or symptoms were reported regarding the EENT system. Neuro: Level of Consciousness is awake, alert, obeys commands, Oriented to person, place, time, situation. Cardiovascular: Capillary refill < 3 seconds Patient's skin is warm and dry. Respiratory: Respiratory effort is even, unlabored, Respiratory pattern is regular, symmetrical. GI: No signs and/or symptoms were reported involving the gastrointestinal system. : No signs and/or symptoms were reported regarding the genitourinary system. Derm: Skin is pink, warm \T\ dry. Musculoskeletal: Reports pain in back. Historical: - Allergies: 09:37 No Known Allergies; hb - Home Meds: 09:37 gabapentin oral oral [Active]; Melatonin Oral [Active]; Vyvanse oral oral [Active]; hb unknown GERD medication [Active]; - PMHx: 09:37 RLS; GERD; hb - PSHx: 09:37 neck surgery with 3 metal pins; ; hb - Immunization history:: Adult Immunizations up to date. - Social history:: Smoking status: Patient denies any tobacco usage or history of. Screenin:42 Abuse screen: Denies threats or abuse. Denies injuries from another. Nutritional hb screening: No deficits noted. Tuberculosis screening: No symptoms or risk factors identified. Fall Risk None identified. Assessment: 09:41 General: see triage note. hb 10:54 Reassessment: reports pain 10/10, crying, restless. Dr. Molina notified, Dilaudid and hb repeat NS bolus administered as ordered. 10:57 Reassessment: PT to CT via stretcher. hb 11:17 Reassessment: Pt returned from CT, NAD. VS WNL. hb 12:07 Reassessment: Patient appears in no apparent distress at this time. Patient and/or hb family updated on plan of care and expected duration. Pain level reassessed. Patient is alert, oriented x 3, equal unlabored respirations, skin warm/dry/pink. 12:27 Reassessment: report from Anna RESENDEZ. dc home after MD talks to pt. ks7 Vital Signs: 09:34 BP 141 / 98; Pulse 86; Resp 16; Temp 97.8; Pulse Ox 100% ; Weight 53.07 kg; Height 5 hb ft. 1 in. (154.94 cm); Pain 10/10; 10:30 BP 131 / 73; Pulse 77; Resp 16; Pulse Ox 99% ; hb 12:00 BP 127 / 98; Pulse 64; Resp 15; Pulse Ox 97% on R/A; hb 12:56 BP 105 / 62; Pulse 76; Resp 18; Temp 98(TE); Pulse Ox 98% ; Pain 5/10; ks7 12:59 Pulse Ox 98% ; Pain 5/10; ks7 09:34 Body Mass Index 22.11 (53.07 kg, 154.94 cm) hb ED Course: 09:16 Patient arrived in ED. ag5 09:16 Moisés Flores MD is Private Physician. ag5 09:31 Erwin Molina MD is Attending Physician. diego 09:34 Anna Cooper, RN is Primary Nurse. hb 09:35 Triage completed. hb 09:37 Arm band placed on. hb 09:42 Patient has correct armband on for positive identification. Bed in low position. Call hb light in reach. Side rails up X 1. 10:30 Inserted saline lock: 20 gauge in right antecubital area, using aseptic technique. hb Blood collected. 11:07 CT Lumbar Spine Wo Con In Process Unspecified. EDMS 11:19 Chest Single View XRAY In Process Unspecified. EDMS 11:20 CT completed. Patient moved back from CT. Patient moved to radiology. bq 11:55 Moisés Flores MD is Referral Physician. diego 11:56 Erick Ruiz MD is Referral Physician. diego 12:27 Primary Nurse role handed off by Anna Cooper RN ks7 12:27 Marley Smallwood, DIPTI is Primary Nurse. ks7 12:57 No provider procedures requiring assistance completed. IV discontinued, intact, ks7 bleeding controlled, No redness/swelling at site. Pressure dressing applied. Administered Medications: Discontinued: NS 0.9% 500 ml IV at bolus once 10:30 Drug: NS 0.9% 500 ml Route: IV; Rate: bolus; Site: right antecubital; hb 10:30 Drug: TORadol 30 mg Route: IVP; Site: right antecubital; hb 10:59 Follow up: Response: No adverse reaction hb 10:30 Drug: Decadron - Dexamethasone 10 mg Route: IVP; Site: right antecubital; hb 10:59 Follow up: Response: No adverse reaction hb 10:30 Drug: morphine 4 mg Route: IVP; Site: right antecubital; hb 10:58 Follow up: Response: No adverse reaction hb 10:30 Drug: Zofran (Ondansetron) 4 mg Route: IVP; Site: right antecubital; hb 10:58 Follow up: Response: No adverse reaction hb 10:30 Drug: Valium 5 mg Route: PO; hb 10:58 Follow up: Response: No adverse reaction hb 10:54 Drug: Dilaudid 1 mg Route: IVP; Site: right antecubital; hb 12:59 Follow up: Pulse Ox 98% ; Pain 5/10 Adult ks7 10:54 Drug: NS 0.9% 500 ml Route: IV; Rate: bolus; Site: right antecubital; hb Outcome: 11:55 Discharge ordered by . diego 12:57 Discharged to home ambulatory. ks7 12:57 Condition: stable 12:57 Discharge instructions given to patient, Instructed on discharge instructions, medication usage, Demonstrated understanding of instructions, medications, Prescriptions given X 4. 13:43 Patient left the ED. ks7 Signatures: Dispatcher [employer] EDMS Erwin Molina MD MD cha Quilty, Betty bq Baxter, Heather, RN Alexa Salazar Kathleen, RN RN ks7
[2019-12-14 13:57] VITALS: BP 105/62; TEMP 98; O2SAT 98
== END 2019-12-14 13:43 | disposition home or self-care (01) ==
LOC: ER 09:14
DX: M54.32 Sciatica, left side (principal); D72.829 Elevated white blood cell count, unspecified; K21.9 Gastro-esophageal reflux disease without esophagitis
CPT/HCPCS: 85025; 80048; 36415; 85652; 81003; 72131; 71045; J1100; J1170; J7040 ×2; J2405; 96374; 96375; 99284

== ENCOUNTER 2019-12-15 05:36 | Emergency (ER) | payer BC ==
[2019-12-15] MEDS ORDERED: METHYLPREDNISOLONE 125 MG INJ ONE (06:40)
[2019-12-15] MEDS ORDERED: KETOROLAC 30 MG/ML INJ ONE (06:40)
--- NOTE | 2019-12-15 07:12 | EDPHYS ---
Physician Documentation [facility] Name: Judith Lyons Age: 58 yrs Sex: Female : 1960 Arrival Date: 12/15/2019 Time: 05:37 Bed 14 Private MD: ED Physician Max Toribio HPI: 12/14 06:30 This 58 yrs old Female presents to ER via Ambulatory with complaints of pm1 Breathing Difficulty. 06:30 The patient presents with pain that is acute, with no known mechanism of injury. The pm1 symptoms are located in the Left buttocks area. The pain radiates to the left leg. The problem was sustained Patient was seen here in the ER yesterday and had labs, CT lumbar spine, and chest x-ray done. She was prescribed pain medications and she took Tylenol #3 last night and when it didn't work she took another dose of Tylenol #3. She woke up with left buttocks pain and felt short of breath. She has not taken any pain medications this AM. She is not having any shortness of breath now and is complaining that her left buttocks pain that radiates down her left leg has not gotten better. She has an appointment with Dr Hughes tomorrow. Onset: The symptoms/episode began/occurred 3 days of back pain. Modifying factors: The patient symptoms are alleviated by specific position, standing, the patient symptoms are aggravated by movement. Associated signs and symptoms: Pertinent negatives: abdominal pain, chest pain, dysuria, fever, numbness, tingling. The patient has not experienced similar symptoms in the past. The patient has been recently seen at the [facility] Emergency Department, yesterday, for similar complaints labs were performed, X-rays were performed, CT scan was performed, was given a prescription for pain medications. Historical: - Allergies: 05:59 No Known Allergies; lp1 - Home Meds: 05:59 gabapentin oral oral [Active]; Melatonin Oral [Active]; Vyvanse oral oral [Active]; lp1 - PMHx: 05:59 RLS; lp1 - PSHx: 05:59 Neck surgery; ; lp1 - Immunization history:: Adult Immunizations up to date. - Social history:: Smoking status: Patient/guardian denies using tobacco, the patient reports quitting approximately 1 years ago. ROS: 06:30 Constitutional: Negative for fever, chills, and weight loss, Cardiovascular: Negative pm1 for chest pain, palpitations, and edema, Respiratory: Negative for shortness of breath, cough, wheezing, and pleuritic chest pain, Abdomen/GI: Negative for abdominal pain, nausea, vomiting, diarrhea, and constipation. 06:30 : Negative for injury, bleeding, discharge, and swelling, MS/Extremity: Negative for injury and deformity, Skin: Negative for injury, rash, and discoloration, Neuro: Negative for headache, weakness, numbness, tingling, and seizure. 06:30 Back: Positive for Left lower back. Exam: 06:30 Constitutional: This is a well developed, well nourished patient who is awake, alert, pm1 and in no acute distress. Head/Face: Normocephalic, atraumatic. Chest/axilla: Normal chest wall appearance and motion. Nontender with no deformity. No lesions are appreciated. 06:30 Respiratory: Lungs have equal breath sounds bilaterally, clear to auscultation and percussion. No rales, rhonchi or wheezes noted. No increased work of breathing, no retractions or nasal flaring. 06:30 Skin: Warm, dry with normal turgor. Normal color with no rashes, no lesions, and no evidence of cellulitis. MS/ Extremity: Pulses equal, no cyanosis. Neurovascular intact. Full, normal range of motion. 06:30 Cardiovascular: Rate: tachycardic, actual rate is 103 bpm, Rhythm: Pulses: no pulse deficits are appreciated, Edema: is not appreciated. 06:30 Abdomen/GI: Inspection: abdomen appears normal, Palpation: abdomen is soft and non-tender. 06:30 Back: pain, that is mild, of the left buttocks, normal spinal alignment noted, vertebral tenderness, is not appreciated. 06:30 Neuro: Orientation: is normal, Mentation: is normal, Motor: is normal, moves all fours, strength is 5/5 in all extremities, Sensation: is normal, no obvious gross deficits, Gait: is steady, to bathroom. Vital Signs: 05:48 BP 142 / 70; Pulse 115; Resp 30; Temp 96.0(A); Pulse Ox 97% on R/A; Pain 10/10; mt2 07:00 BP 109 / 72; Pulse 91; Resp 17; Pulse Ox 95% on R/A; Pain 0/10; mt2 07:36 BP 109 / 72; Pulse 102; Resp 20; Temp 97.5(T); Pulse Ox 94% on R/A; Pain 8/10; jr10 MDM: 06:09 Patient medically screened. pm1 06:30 ED course: Patient with labs, chest x-ray, and CT of L-spine. Showed the CT results to pm1 the patient and discussed with her the likely disc herniation at L5-S1 and that it is likely causing her left sided sciatica. She has seen Dr. Hughes for her neck issues in the past and has an appointment with him for her current back pain. Informed her that she can follow up with him for a MRI, follow up with a neurosurgeon, and also pain management. 06:55 Data reviewed: vital signs. Data interpreted: Pulse oximetry: on room air is 97 %. pm1 Interpretation: normal. 12/14 06:29 Order name: IV Saline Lock; Complete Time: 06:35 pm1 Administered Medications: 06:30 Drug: SOLU-Medrol 125 mg Route: IVP; Site: right antecubital; mt2 06:57 Follow up: Response: No adverse reaction; Pain is decreased mt2 06:30 Drug: TORadol - Ketorolac 15 mg Route: IVP; Site: right antecubital; mt2 06:57 Follow up: Response: No adverse reaction; Pain is decreased mt2 07:26 Drug: Lidoderm 5 % (700 mg/patch) 1 patches {Note: patch applied to left side lower jr10 back, 4% lidocaine patch applied per pharmacy formulary.} Route: Topical; Site: affected area; 07:38 Follow up: Response: No adverse reaction jr10 Disposition: 12/15/19 07:12 Discharged to Home. Impression: Lumbago with sciatica, left side. - Condition is Stable. - Discharge Instructions: Back Pain, Adult, Herniated Disk, Sciatica. - Prescriptions for Lidoderm 5 % Topical adhesive patch,medicated - apply 1 patch by TRANSDERMAL route once daily As needed; 30 Transdermal Patch. - Medication Reconciliation Form, Thank You Letter, Antibiotic Education, Prescription Opioid Use form. - Follow up: Emergency Department; When: As needed; Reason: Worsening of condition. Follow up: Private Physician; When: 2 - 3 days; Reason: Recheck today's complaints, Continuance of care, Re-evaluation by your physician. - Problem is new. - Symptoms have improved. Signatures: Jena Ratliff RN RN lp1 [facility] pm1 Mai Adler, RN RN mt2 Kami Perez RN RN jr10 Corrections: (The following items were deleted from the chart) 07:39 07:12 12/15/2019 07:12 Discharged to Home. Impression: Lumbago with sciatica, left jr10 side. Condition is Stable. Forms are Medication Reconciliation Form, Thank You Letter, Antibiotic Education, Prescription Opioid Use. Follow up: Emergency Department; When: As needed; Reason: Worsening of condition. Follow up: Private Physician; When: 2 - 3 days; Reason: Recheck today's complaints, Continuance of care, Re-evaluation by your physician. Problem is new. Symptoms have improved. pm1
--- NOTE | 2019-12-15 07:12 | ER ---
Nurse's Notes [facility] Name: Judith Lyons Age: 58 yrs Sex: Female : 1960 Arrival Date: 12/15/2019 Time: 05:37 Bed 14 Private MD: Diagnosis: Lumbago with sciatica, left side Presentation: 12/14 05:48 Chief complaint: Patient states: PER PT WAS SEEN YESTERDAY IN THIS ED. FOR SCIATICA. mt2 WAS GIVEN TYL #3 AND MUSCLE RELAXER. PER PT ADMINSTERED MORE THAN DIRECTED DOSE PAIN WAS NOT CONTROLLED. PATIENT WOKE WITH SOB,. STATING " I CANT BREATHE" PT AGITATED AND TACHYAPNIC DURING TRIAGE. Coronavirus screen: Patient reports a cough. Patient denies shortness of breath or difficulty breathing. Patient denies measured and/or subjective temperature greater than 100.4F prior to today's visit. Patient denies travel on a cruise ship or to a country the [facility] currently lists as an affected area. Patient denies contact with known and/or suspected case of COVID-19. Patient instructed to continue to wear a mask when interacting with others. Patient moved to private room, placed in contact and droplet isolation with eye protection until further assessment. Ebola Screen: No symptoms or risks identified at this time. Initial Sepsis Screen: Does the patient meet any 2 criteria? No. Patient's initial sepsis screen is negative. Does the patient have a suspected source of infection? No. Patient's initial sepsis screen is negative. Risk Assessment: Do you want to hurt yourself or someone else?. Onset of symptoms was December 15, 2019. 05:48 Method Of Arrival: Ambulatory mt2 05:48 Acuity: MIGUELITO 3 mt2 Historical: - Allergies: 05:59 No Known Allergies; lp1 - Home Meds: 05:59 gabapentin oral oral [Active]; Melatonin Oral [Active]; Vyvanse oral oral [Active]; lp1 - PMHx: 05:59 RLS; lp1 - PSHx: 05:59 Neck surgery; ; lp1 - Immunization history:: Adult Immunizations up to date. - Social history:: Smoking status: Patient/guardian denies using tobacco, the patient reports quitting approximately 1 years ago. Screenin:54 Abuse screen: Denies threats or abuse. Nutritional screening: No deficits noted. mt2 Tuberculosis screening: No symptoms or risk factors identified. Fall Risk None identified. Assessment: 05:53 Reassessment: Patient and/or family updated on plan of care and expected duration. Pain mt2 level reassessed. General: Appears distressed, uncomfortable, Behavior is agitated, restless. Pain: Complains of pain in pelvis Pain currently is 10 out of 10 on a pain scale. Neuro: No deficits noted. Cardiovascular: Rhythm is sinus tachycardia. Respiratory: Airway is patent Respiratory effort is labored, Breath sounds with rhonchi. GI: Reports upper abdominal pain. : No deficits noted. EENT: No deficits noted. Derm: No deficits noted. Musculoskeletal: No deficits noted. Injury Description:. 06:58 Reassessment: Patient and/or family updated on plan of care and expected duration. Pain mt2 level reassessed. Patient states symptoms have improved. General: Appears comfortable, Behavior is calm, quiet, PATIENT WITH EYES CLOSE NON LABORED BREATHING. NO S/S OF PAIN OR DISTRESS... Pain: Unable to use pain scale. PT IS SLEEPING. Vital Signs: 05:48 BP 142 / 70; Pulse 115; Resp 30; Temp 96.0(A); Pulse Ox 97% on R/A; Pain 10/10; mt2 07:00 BP 109 / 72; Pulse 91; Resp 17; Pulse Ox 95% on R/A; Pain 0/10; mt2 07:36 BP 109 / 72; Pulse 102; Resp 20; Temp 97.5(T); Pulse Ox 94% on R/A; Pain 8/10; jr10 ED Course: 05:37 Patient arrived in ED. ds1 05:48 Mai Adler, RN is Primary Nurse. mt2 05:52 Triage completed. mt2 05:53 Arm band placed on right wrist. mt2 05:55 Inserted saline lock: 20 gauge in right antecubital area, using aseptic technique. mt2 Blood collected. 05:59 Chato Vázquez NP is PHCP. pm1 05:59 Max Toribio MD is Attending Physician. pm1 07:04 Kami Perez, DIPTI is Primary Nurse. jr10 07:39 IV discontinued, No redness/swelling at site. Pressure dressing applied. jr10 Administered Medications: 06:30 Drug: SOLU-Medrol 125 mg Route: IVP; Site: right antecubital; mt2 06:57 Follow up: Response: No adverse reaction; Pain is decreased mt2 06:30 Drug: TORadol - Ketorolac 15 mg Route: IVP; Site: right antecubital; mt2 06:57 Follow up: Response: No adverse reaction; Pain is decreased mt2 07:26 Drug: Lidoderm 5 % (700 mg/patch) 1 patches {Note: patch applied to left side lower jr10 back, 4% lidocaine patch applied per pharmacy formulary.} Route: Topical; Site: affected area; 07:38 Follow up: Response: No adverse reaction jr10 Outcome: 07:12 Discharge ordered by . pm1 07:38 Discharged to home jr10 07:38 Discharged to home ambulatory. 07:38 Condition: good 07:38 Discharge instructions given to patient, Instructed on discharge instructions, follow up and referral plans. Demonstrated understanding of instructions, follow-up care, medications, Prescriptions given X 1. 07:39 Patient left the ED. jr10 Signatures: Thi Hightower ds1 Jena Ratliff, RN RN lp1 Chato Vázquez NP [employer]IE[employer] pm1 Mai Alder RN RN mt2 Kami Perez RN RN jr10
[2019-12-15] MEDS ORDERED: LIDOCAINE 4% PATCH ONE (07:33)
[2019-12-15 07:48] VITALS: BP 109/72
[2019-12-15 07:49] VITALS: TEMP 97.5; O2SAT 94
== END 2019-12-15 07:39 | disposition home or self-care (01) ==
LOC: ER 05:36
DX: M54.42 Lumbago with sciatica, left side (principal)
CPT/HCPCS: 93005; J2930; 96374; 96375; 99284

== ENCOUNTER 2021-03-09 04:07 | Inpatient (IN) | payer BC ==
[2021-03-09 04:41] LABS: Absolute Lymphocytes (CBC) 1.7 K/uL (0.7-4.9); Basophils % 0.4 % (0-1.3); Hematocrit 46.6 % (36.0-45.0); Lymphocytes % 38.2 % (15.3-44.8); MPV 6.9 fL (7.6-11.3); RBC Red Blood Cell Count 5.46 M/uL (3.86-4.86)
[2021-03-09 04:45] LABS: Protime INR 0.97
[2021-03-09] MEDS ORDERED: NA CHLORIDE 0.9% 1,000 ML ONE ×3 (05:07→21:34)
[2021-03-09 05:12] LABS: ALT/SGPT 34 U/L (12-78); AST/SGOT 37 U/L (15-37); Albumin 3.7 g/dL (3.4-5.0); Alkaline Phosphatase 90 U/L (45-117); BUN Blood Urea Nitrogen 16 mg/dL (7-18); Bicarbonate 24 mmol/L (21-32); Bilirubin Direct 0.1 mg/dL (0-0.2); Bilirubin Total 0.4 mg/dL (0.2-1.0); Glucose Level 172 mg/dL (74-106); NT PRO-BNP 405 pg/mL (<125); Potassium 3.4 mmol/L (3.5-5.1); Protein, Total 6.8 g/dL (6.4-8.2); Sodium Level 143 mmol/L (136-145); Troponin (Emerg Dept Use Only) < 0.02 ng/mL (0.0-0.045)
[2021-03-09] MEDS ORDERED: CEFTRIAXONE 1000 MG/VIAL ONE ×2 (07:05→21:31)
[2021-03-09] MEDS ORDERED: AZITHROMYCIN 500 MG INJ IVPB ONE (07:05)
[2021-03-09] MEDS ORDERED: NA CHLORIDE 0.9% 250 ML ONE (07:05)
--- NOTE | 2021-03-09 07:25 | RAD REPORT ---
EXAM DESCRIPTION: [facility] Single View03/09/2021 4:39 am CLINICAL HISTORY: Shortness of breath COMPARISON: October 2020 FINDINGS: Development of extensive right lung opacities. Left lung appears clear of acute infiltrate. The heart is normal size IMPRESSION: Development of extensive right lung opacities probably pneumonia
--- NOTE | 2021-03-09 07:45 | RAD REPORT ---
EXAM DESCRIPTION: CT - Chest For Pe Angio - 03/09/2021 7:26 am CLINICAL HISTORY: Shortness of breath COMPARISON: 2019 CT TECHNIQUE: Dynamically enhanced axial 3 mm thick images of the chest were obtained during administra tion of <100> mL Isovue 370 IV contrast. Coronal and oblique reconstruction images were generated and reviewed. Exam utilizes a protocol for optimal evaluation of pulmonary arterial tree. Maximum intensity projections 3D imaging was utilized All CT scans are performed using dose optimization technique as appropriate and may include automated exposure control or mA/KV adjustment according to patient size. FINDINGS: A pulmonary embolus is not seen. A thoracic aortic aneurysm is not noted. A pleural effusion is not seen. A pericardial effusion is not seen. Extensive right alveolar lung opacities. Mild left lower lobe alveolar opacity IMPRESSION: Negative for a pulmonary embolism. Extensive a right alveolar lung opacities likely pneumonia
--- NOTE | 2021-03-09 08:31 | EDPHYS ---
Physician Documentation [facility] Name: Judith Lyons Age: 60 yrs Sex: Female : 1960 Arrival Date: 03/09/2021 Time: 04:08 Bed 4 Private MD: ED Physician Chin Flynn HPI: 03/09 04:20 This 60 yrs old Female presents to ER via Wheelchair with complaints of mh7 Breathing Difficulty. 04:20 The patient has shortness of breath at rest. Onset: The symptoms/episode began/occurred mh7 today. Duration: The symptoms are continuous, and are unchanged since they started. The patient's shortness of breath is aggravated by nothing, is alleviated by nothing. 04:20 Associated signs and symptoms: Pertinent negatives: chest pain, non-productive cough, mh7 productive cough, diaphoresis, dizziness, fever, hemoptysis, loss of consciousness, nausea, numbness in extremities, visual changes, vomiting. 04:20 Severity of symptoms: At their worst the symptoms were moderate today, in the emergency 7 department the symptoms are unchanged. Historical: - Allergies: 04:24 No Known Allergies; sj1 - Home Meds: 04:24 gabapentin Oral [Active]; sj1 - PMHx: 04:24 RLS; sj1 10:14 Chronic obstructive lung disease; Pneumonia; tw5 - Immunization history:: Client reports receiving the 2nd dose of the Covid vaccine. - Social history:: Smoking status: Patient/guardian denies using tobacco, Patient uses alcohol, occasionally. Patient/guardian denies using street drugs. ROS: 04:20 Constitutional: Negative for fever, chills, and weight loss, Eyes: Negative for injury, mh7 pain, redness, and discharge, ENT: Negative for injury, pain, and discharge, Neck: Negative for injury, pain, and swelling, Cardiovascular: Negative for chest pain, palpitations, and edema, Abdomen/GI: Negative for abdominal pain, nausea, vomiting, diarrhea, and constipation, Back: Negative for injury and pain, : Negative for injury, bleeding, discharge, and swelling, Skin: Negative for injury, rash, and discoloration, Neuro: Negative for headache, weakness, numbness, tingling, and seizure, Psych: Negative for depression, anxiety, suicide ideation, homicidal ideation, and hallucinations, Allergy/Immunology: Negative for hives, rash, and allergies, Endocrine: Negative for neck swelling, polydipsia, polyuria, polyphagia, and marked weight changes, Hematologic/Lymphatic: Negative for swollen nodes, abnormal bleeding, and unusual bruising. Exam: 04:20 Head/Face: Normocephalic, atraumatic. Eyes: Pupils equal round and reactive to light, mh7 extra-ocular motions intact. Lids and lashes normal. Conjunctiva and sclera are non-icteric and not injected. Cornea within normal limits. Periorbital areas with no swelling, redness, or edema. Neck: Trachea midline, no thyromegaly or masses palpated, and no cervical lymphadenopathy. Supple, full range of motion without nuchal rigidity, or vertebral point tenderness. No Meningismus. Chest/axilla: Normal chest wall appearance and motion. Nontender with no deformity. No lesions are appreciated. Cardiovascular: Regular rate and rhythm with a normal S1 and S2. No gallops, murmurs, or rubs. Normal PMI, no JVD. No pulse deficits. Abdomen/GI: Soft, non-tender, with normal bowel sounds. No distension or tympany. No guarding or rebound. No evidence of tenderness throughout. Back: No spinal tenderness. No costovertebral tenderness. Full range of motion. 04:20 Skin: Warm, dry with normal turgor. Normal color with no rashes, no lesions, and no evidence of cellulitis. MS/ Extremity: Pulses equal, no cyanosis. Neurovascular intact. Full, normal range of motion. Neuro: Awake and alert, GCS 15, oriented to person, place, time, and situation. Cranial nerves II-XII grossly intact. Motor strength 5/5 in all extremities. Sensory grossly intact. Cerebellar exam normal. Normal gait. 04:20 Constitutional: The patient appears in no acute distress, alert, awake, anxious. 04:20 Respiratory: the patient does not display signs of respiratory distress, Respirations: prolonged exhalation, that is mild, Breath sounds: rales, that are mild, are scattered, rhonchi, that are mild, are scattered, Respiratory rate: 20 04:20 Psych: Behavior/mood is anxious, Affect is animated, Oriented to person, place, time, Patient has no thoughts/intents to harm self or others. Judgement / Insight is normal. Memory is normal. Delusions/hallucinations are not present. Vital Signs: 04:21 BP 132 / 80; Pulse 136; Resp 33 S; Temp 98.3(TE); Pulse Ox 100% on R/A; Weight 49.9 kg sj1 (R); Height 5 ft. 1 in. (154.94 cm); Pain 10/10; 04:55 BP 128 / 74; Pulse 112; Resp 26; Pulse Ox 97% on 2 lpm NC; Pain 0/10; wg 05:04 Pulse 102; Resp 20; Pulse Ox 98% on 2 lpm NC; Pain 0/10; wg 05:50 Pulse 87; Resp 20; Pulse Ox 99% on 2 lpm NC; wg 06:14 BP 92 / 57; Pulse 88; Resp 20; Pulse Ox 97% on 2 lpm NC; wg 06:51 BP 90 / 57; Pulse 92; Resp 20; Pulse Ox 98% on 2 lpm NC; Pain 0/10; wg 08:00 BP 100 / 61; Pulse 92; Resp 24; Pulse Ox 99% on 2 lpm NC; tw5 09:13 BP 89 / 60; Pulse 91; Resp 16; Pulse Ox 100% on 2 lpm NC; tw5 04:21 Body Mass Index 20.79 (49.90 kg, 154.94 cm) sj1 MDM: 07:11 Transition of care: After a detail discussion of the patient's case, care is mh7 transferred to Chin Flynn MD. 08:30 Patient medically screened. kdr 08:30 Data reviewed: vital signs, nurses notes, lab test result(s), radiologic studies. kdr Counseling: I had a detailed discussion with the patient and/or guardian regarding: the historical points, exam findings, and any diagnostic results supporting the discharge/admit diagnosis, lab results, radiology results, the need for further work-up and treatment in the hospital. 03/09 04:28 Order name: Basic Metabolic Panel; Complete Time: 06:12 7 03/09 04:28 Order name: CBC with Diff; Complete Time: 06:12 7 03/09 04:28 Order name: LFT's; Complete Time: 06:12 7 03/09 04:28 Order name: Magnesium; Complete Time: 06:12 7 03/09 04:28 Order name: NT PRO-BNP; Complete Time: 06:12 mh7 03/09 04:28 Order name: PT-INR; Complete Time: 06:12 [facility] 03/09 04:28 Order name: Troponin (emerg Dept Use Only); Complete Time: 06:12 [facility] 03/09 04:28 Order name: UDS [facility] 03/09 04:31 Order name: COVID-19 (Coronavirus) Document "Date of Onset" if Symptomatic [facility] 03/09 04:31 Order name: Influenza Screen (a \\T\\ B) [facility] 03/09 06:22 Order name: Blood Culture Adult (2) [facility] 03/09 06:23 Order name: Blood Culture [facility] 03/09 06:23 Order name: Lactate; Complete Time: 07:32 [facility] 03/09 06:23 Order name: Procalcitonin; Complete Time: 08:38 [facility] 03/09 04:28 Order name: XRAY Chest (1 view); Complete Time: 07:32 [facility] 03/09 04:28 Order name: EKG; Complete Time: 04:29 [facility] 03/09 04:28 Order name: Cardiac monitoring; Complete Time: 04:34 [facility] 03/09 04:28 Order name: EKG - Nurse/Tech; Complete Time: 04:34 [facility] 03/09 04:28 Order name: IV Saline Lock; Complete Time: 04:41 [facility] 03/09 04:28 Order name: Labs collected and sent; Complete Time: 04:41 [facility] 03/09 04:28 Order name: O2 Per Protocol; Complete Time: 04:40 [facility] 03/09 06:13 Order name: CT Chest For PE Angio; Complete Time: 08:05 [facility] 03/09 08:52 Order name: Urine Dipstick-Ancillary [facility] 03/09 09:08 Order name: INCENTIVE SPIROMETRY 5 03/09 09:48 Order name: COVID-19/FLU A+B [facility] 03/09 10:15 Order name: Lactate Sepsis 2 HR Follow-up [facility] 03/09 04:28 Order name: O2 Sat Monitoring; Complete Time: 04:40 [facility] 03/09 04:28 Order name: Urine Dipstick-Ancillary (obtain specimen); Complete Time: 09:07 [facility] Administered Medications: 04:54 Drug: NS 0.9% 1000 ml Route: IV; Rate: 1000 ml; Infused Over: 30 mins; Site: left wg forearm; 09:06 Follow up: Response: No adverse reaction; IV Status: Completed infusion 06:47 Drug: NS 0.9% 1000 ml Route: IV; Rate: 1000 ml; Infused Over: 25 mins; Site: left wg forearm; 09:06 Follow up: Response: No adverse reaction; IV Status: Completed infusion 5 06:48 Drug: Rocephin (cefTRIAXone) 1 grams Route: IV; Rate: per protocol; Infused Over: 5 wg mins; Site: left forearm; 09:06 Follow up: Response: No adverse reaction; IV Status: Completed infusion 06:48 Drug: Zithromax (azithromycin) 500 mg Route: IVPB; Infused Over: 1 hrs; Site: left wg forearm; 09:06 Follow up: Response: No adverse reaction; IV Status: Completed infusion Disposition Summary: 03/09/21 08:30 Hospitalization Ordered Hospitalization Status: Inpatient Admission kdr Provider: Garrick Boykin [facility] kdr Condition: Fair kdr Problem: new kdr Symptoms: are unchanged kdr Bed/Room Type: Standard kdr Room Assignment: 207(03/09/21 10:01) dw Diagnosis - Unspecified bacterial pneumonia kdr Forms: - Medication Reconciliation Form kdr - SBAR form kdr Signatures: Dispatcher [employer] Parul Hunt RN RN dw Chin Flynn MD MD kdr Carlos Eduardo Lorenz MD MD mh7 Agustin Mora RN Rama Ramirez RN RN sj1 Odette Yoo 5 Corrections: (The following items were deleted from the chart) : 08:20 Misc. Order ordered. kdr 10:01 08:30 kdr dw
--- NOTE | 2021-03-09 08:31 | ER ---
Nurse's Notes [facility] Name: Judith Lyons Age: 60 yrs Sex: Female : 1960 Arrival Date: 03/09/2021 Time: 04:08 Bed 4 Private MD: Diagnosis: Unspecified bacterial pneumonia Presentation: 03/09 04:21 Chief complaint: Patient states: C/O SOB AND MUSCLE CRAMPS, STATES THIS sj1 HAPPENED BEFORE AND WAS DX WITH ANXIETY. Coronavirus screen: Vaccine status: Patient reports receiving the 2nd dose of the covid vaccine. Ebola Screen: No symptoms or risks identified at this time. Initial Sepsis Screen: Does the patient meet any 2 criteria? No. Patient's initial sepsis screen is negative. Does the patient have a suspected source of infection? No. Patient's initial sepsis screen is negative. Risk Assessment: Do you want to hurt yourself or someone else? Patient reports no desire to harm self or others. Onset of symptoms was March 09, 2021. 04:21 Method Of Arrival: Wheelchair sj1 04:21 Acuity: MIGUELITO 3 sj1 Triage Assessment: 04:24 General: Appears well groomed, Behavior is anxious, uncooperative. Pain: Complains of sj1 pain in RT LEG Pain does not radiate. Pain currently is 10 out of 10 on a pain scale. at worst was 10 out of 10 on a pain scale. level that patient reports is acceptable is 0 out of 10 on a pain scale. Quality of pain is described as crampy, Pain began suddenly, Is continuous. Respiratory: Reports shortness of breath at rest Onset: The symptoms/episode began/occurred this morning, the patient has mild shortness of breath. Historical: - Allergies: 04:24 No Known Allergies; sj1 - Home Meds: 04:24 gabapentin Oral [Active]; sj1 - PMHx: 04:24 RLS; sj1 10:14 Chronic obstructive lung disease; Pneumonia; tw5 - Immunization history:: Client reports receiving the 2nd dose of the Covid vaccine. - Social history:: Smoking status: Patient/guardian denies using tobacco, Patient uses alcohol, occasionally. Patient/guardian denies using street drugs. Screenin:37 Abuse screen: Denies threats or abuse. Denies injuries from another. Nutritional wg screening: No deficits noted. Tuberculosis screening: No symptoms or risk factors identified. Fall Risk IV access (20 points). Assessment: 04:37 General: Behavior is anxious, restless. Cardiovascular: No deficits noted. Rhythm is wg sinus tachycardia. Respiratory: Airway is patent Trachea midline Respiratory effort is even, unlabored, Respiratory pattern is hyperventilation Breath sounds are clear bilaterally. Breath sounds are diminished bilaterally. GI: No deficits noted. : No deficits noted. 04:54 Reassessment: Pt walked to but unable to provide a urine sample. Pt refusing a wg catheter. Pt also refusing to be swabbed. Pt currently laying on the stretcher in NAD. 05:09 Reassessment: Patient appears in no apparent distress at this time. No changes from wg previously documented assessment. Pt currently sleeping. Patient states symptoms have improved. 05:50 Reassessment: Patient appears in no apparent distress at this time. Pt sleeping. wg 06:12 Reassessment: No changes from previously documented assessment. Pt sleeping. Pt easily wg arousable. Significant other at bedside. 06:49 Reassessment: No changes from previously documented assessment. Pt resting comfortably wg on stretcher A\\T\\Ox4. Pt states her breathing is much better along with her anxiety. 08:00 General: Appears in no apparent distress. Behavior is anxious, restless, Reports "I tw5 just cannot breath" Nursing staff educated patient on deep breathing techniques. Patient demonstrated understanding by performing technique. Respiratory: Airway is patent Trachea midline Respiratory effort is even, unlabored, Respiratory pattern is hyperventilation Patient able to control respiratory pattern with nursing staff coaching to a regular rate. 09:13 Reassessment: Patient and/or family updated on plan of care and expected duration. Pain tw5 level reassessed. Vital Signs: 04:21 BP 132 / 80; Pulse 136; Resp 33 S; Temp 98.3(TE); Pulse Ox 100% on R/A; Weight 49.9 kg sj1 (R); Height 5 ft. 1 in. (154.94 cm); Pain 10/10; 04:55 BP 128 / 74; Pulse 112; Resp 26; Pulse Ox 97% on 2 lpm NC; Pain 0/10; wg 05:04 Pulse 102; Resp 20; Pulse Ox 98% on 2 lpm NC; Pain 0/10; wg 05:50 Pulse 87; Resp 20; Pulse Ox 99% on 2 lpm NC; wg 06:14 BP 92 / 57; Pulse 88; Resp 20; Pulse Ox 97% on 2 lpm NC; wg 06:51 BP 90 / 57; Pulse 92; Resp 20; Pulse Ox 98% on 2 lpm NC; Pain 0/10; wg 08:00 BP 100 / 61; Pulse 92; Resp 24; Pulse Ox 99% on 2 lpm NC; tw5 09:13 BP 89 / 60; Pulse 91; Resp 16; Pulse Ox 100% on 2 lpm NC; tw5 04:21 Body Mass Index 20.79 (49.90 kg, 154.94 cm) sj1 Vitals: 04:37 Cardiac Rhythm Assessment Regular Sinus tach. wg ED Course: 04:08 Patient arrived in ED. bp1 04:19 Carlos Eduardo Lorenz MD is Attending Physician. mh7 04:22 Missed attempt(s): 22 gauge in left forearm. Notified Mer Ivan RN, of missed tt3 attempt.. Bleeding controlled, band aid applied, catheter tip intact. 04:24 Triage completed. sj1 04:30 Inserted saline lock: 20 gauge in left forearm, using aseptic technique. Blood ms4 collected. 04:37 Oxygen administration via nasal cannula \\T\\ 2L/min. wg 04:37 Patient has correct armband on for positive identification. Placed in gown. Bed in low wg position. Call light in reach. Side rails up X2. Adult w/ patient. monitor tech on. Pulse ox on. NIBP on. 04:38 XRAY Chest (1 view) In Process Unspecified. EDMS 04:40 Troponin (emerg Dept Use Only) Sent. wg 04:40 PT-INR Sent. wg 04:40 NT PRO-BNP Sent. wg 04:40 Magnesium Sent. wg 04:40 LFT's Sent. wg 04:40 CBC with Diff Sent. wg 04:40 Basic Metabolic Panel Sent. wg 04:53 Agustin Mora RN is Primary Nurse. wg 06:37 Blood Culture Adult (2) Sent. wg 06:37 Procalcitonin Sent. wg 06:37 Lactate Sent. wg 06:37 Blood Culture Sent. wg 07:05 Primary Nurse role handed off by Agustin Mora, RN tw5 07:05 Odette Yoo is Primary Nurse. tw5 07:14 Attending Physician role handed off by Carlos Eduardo Lorenz MD kdr 07:14 Chin Flynn MD is Attending Physician. kdr 07:26 CT Chest For PE Angio In Process Unspecified. EDMS 08:00 Door closed. Noise minimized. Lights dimmed. Moved to private room. Warm blanket given. tw5 Verbal reassurance given. 08:05 Patient is placed in psych hold. Family accompanied patient. tw5 08:29 Garrick Boykin is Hospitalizing Provider. kdr 09:04 Incentive spirometer education provided by an Emergency Department nursing staff member.tw5 09:07 UDS Sent. tw5 09:08 Influenza Screen (a \\T\\ B) Sent. tw5 09:08 COVID-19 (Coronavirus) Document "Date of Onset" if Symptomatic Sent. tw5 09:10 INCENTIVE SPIROMETRY Sent. tw5 10:14 No provider procedures requiring assistance completed. Patient admitted, IV remains in tw5 place. Administered Medications: 04:54 Drug: NS 0.9% 1000 ml Route: IV; Rate: 1000 ml; Infused Over: 30 mins; Site: left forearm; 09:06 Follow up: Response: No adverse reaction; IV Status: Completed infusion tw5 06:47 Drug: NS 0.9% 1000 ml Route: IV; Rate: 1000 ml; Infused Over: 25 mins; Site: left forearm; 09:06 Follow up: Response: No adverse reaction; IV Status: Completed infusion tw5 06:48 Drug: Rocephin (cefTRIAXone) 1 grams Route: IV; Rate: per protocol; Infused Over: 5 wg mins; Site: left forearm; 09:06 Follow up: Response: No adverse reaction; IV Status: Completed infusion tw5 06:48 Drug: Zithromax (azithromycin) 500 mg Route: IVPB; Infused Over: 1 hrs; Site: left forearm; 09:06 Follow up: Response: No adverse reaction; IV Status: Completed infusion tw5 Outcome: 08:30 Decision to Hospitalize by Provider. kdr 10:13 Admitted to Med/surg Report called to Jazmin on BBOXXsur tw5 10:13 Condition: stable 10:13 Admitted to Med/surg accompanied by tech, via wheelchair, room 207, with oxygen, with tw5 chart. 10:26 Patient left the ED. tw5 Signatures: Dispatcher [employer] EDOR Chin Flynn MD MD [facility] Ana, Carlos Eduardo Argueta MD MD 7 Agusto, Moises tt3 Mer Ivan RN RN ms4 Agustin Mora RN wg Rama Ramirez RN RN sj1 Fredo, Odette 5
--- NOTE | 2021-03-09 08:46 | P.HP ---
Patient History Date of Service: 03/09/21 Reason for admission: Shortness of breath History of Present Illness: 60-year-old woman with a history of COPD, tobacco abuse, and history of DVT presented to the emergency department with a complaint of sudden onset shortness of breath which occurred this morning. Symptoms associated with general muscle aches and pleurisy. She also reports cough productive of blood-stained sputum and intermittent wheezing. Patient denied any fever. She denied any nausea or vomiting. CTA thorax done in the emergency department tonight from embolism but demonstrated extensive right-sided pneumonia. She was requiring 4 L of oxygen for good SaO2. Patient tachypneic and tachycardic in the ED. She later developed hypotension. Lactic acid elevated. She is vaccinated for COVID. Sepsis protocol initiated. Patient admitted for further management. Allergies No Known Allergies Allergy (Verified 04/08/14 03:28) - Past Medical/Surgical History Diabetic: No -: Restless leg syndrome -: Tobacco abuse -: Degenerative disc and joint disease -: GERD -: Neuropathy -: Anxiety -: History of DVT in 2013, treated -: COPD -: Neck surgery -: -: Breast augmentation -: Fatty tumor removed to the left chest Psychosocial/ Personal History: Patient is - Family History Brother -: Cancer Father -: Cancer Notes: Esophageal cancer - Social History Smoking Status: Current some day smoker (Patient is now vaping.) Alcohol use: Yes CD- Drugs: No Caffeine use: Yes Review of Systems Respiratory: Cough, Shortness of Breath, Pleuritic Pain Gastrointestinal: Nausea, Unremarkable Genitourinary: Unremarkable Musculoskeletal: Unremarkable Integumentary: Unremarkable Other: Except as documented, all other systems reviewed and negative. Physical Examination - Physical Exam General: Alert, Mild distress, Other (Irritable) HEENT: Atraumatic, Normocephalic, Mucous membr. moist/pink, EOMI, Sclerae nonicteric Neck: Supple, JVD not distended Respiratory: Normal air movement, Crackles/rales (Right lung.) Cardiovascular: No edema, Normal S1 S2, Other (Tachycardia) Gastrointestinal: Normal bowel sounds, Soft and benign, Non-distended, No tenderness Musculoskeletal: No swelling, No tenderness Neurological: Normal speech, Normal strength at 5/5 x4 extr, Cranial nerves 3-12 intact Lymphatics: No axilla or inguinal lymphadenopathy - Studies Laboratory Data (last 24 hrs) 03/09/21 04:30: PT 11.2, INR 0.97 03/09/21 04:30: WBC 4.50, Hgb 15.5 H, Hct 46.6 H, Plt Count 400 03/09/21 04:30: Sodium 143, Potassium 3.4 L, BUN 16, Creatinine 0.83, Glucose 172 H, Magnesium 2.0, Total Bilirubin 0.4, AST 37, ALT 34, Alkaline Phosphatase 90 Assessment and Plan - Problems (Diagnosis) (1) Septic shock Current Visit: Yes Status: Acute (2) Acute respiratory failure with hypoxia Current Visit: Yes Status: Acute (3) Pneumonia Current Visit: No Status: Acute Qualifiers: Pneumonia type: due to unspecified organism (4) Polysubstance abuse Current Visit: Yes Status: Acute - Plan Admit to inpatient. Sepsis protocol initiated. Give up to 3 L normal saline bolus for hypotension. Will transferred to the ICU and start vasopressor if blood pressure does not respond to the normal saline bolus. Start IV Rocephin, Zithromax and clindamycin. Serial lactate. Follow cultures Chest physiotherapy Pulmonary consult. Pain management for pleurisy as needed. Titrate oxygen. Monitor CBC and blood chemistry. Optimize electrolytes. Compiled and reconcile home medications. - Advance Directives Does patient have a Living Will: Yes Does patient have a Durable POA for Healthcare: Yes
[2021-03-09 08:51] LABS: Urine Blood Trace-intact (Negative); Urine Glucose Negative (Negative); Urine Protein Negative (Negative); Urine Specific Gravity <=1.005 (1.005-1.030)
[2021-03-09 09:11] LABS: Barbiturates NEGATIVE (NEGATIVE); Benzodiazepines NEGATIVE (NEGATIVE); Cocaine NEGATIVE (NEGATIVE); METHAMPHETAM POSITIVE (NEGATIVE); Methadone NEGATIVE (NEGATIVE); Opiates NEGATIVE (NEGATIVE); Phencyclidine NEGATIVE (NEGATIVE); THC Cannibis POSITIVE (NEGATIVE)
[2021-03-09 09:48] LABS: SARS-COV-2 RT PCR NEGATIVE (NEGATIVE)
[2021-03-09] MEDS ORDERED: ONDANSETRON 4 MG/2 ML VIAL IV PRN (10:21)
[2021-03-09] MEDS ORDERED: ACETAMINOPHEN 500 MG TAB PO PRN (10:21)
[2021-03-09] MEDS ORDERED: NA CHLORIDE 0.9% 1,000 ML IV ONE ×3 (10:33→18:00)
[2021-03-09 11:06] LABS: Protime INR 1.1
[2021-03-09] MEDS: CLINDAMYCIN INJ 600 MG in NA CHLORIDE 0.9% 50 ML IV SCH ×2 (11:12→16:22)
[2021-03-09] MEDS: ENOXAPARIN 40 MG/0.4 ML SQ SCH (11:15)
[2021-03-09] MEDS ORDERED: CLINDAMYCIN IV 150 MG/ML (6 mL) VIAL ONE (11:28)
[2021-03-09] MEDS ORDERED: INFLUENZA VACCINE (for 6+ mo) 0.5 ML DOSE IMVAC ONE (12:00)
[2021-03-09] MEDS ORDERED: IPRATROPIUM BROM 0.5MG/2.5ML NEB SCH (12:00)
[2021-03-09] MEDS: NA CHLORIDE 0.9% 1,000 ML IV SCH ×2 (12:50→23:41)
[2021-03-09] MEDS: ALBUTEROL 2.5 MG/3 ML NEB SOL NEB SCH ×2 (13:15→20:00)
[2021-03-09] MEDS: IPRATROPIUM BROM 0.5MG/2.5ML NEB SCH ×2 (13:15→20:00)
--- NOTE | 2021-03-09 17:47 | P.INFCA ---
Sepsis Focused Assessment - Focused Assessment Complete? Sepsis Focused Assessment Completed?: Yes - Sepsis Screen Result Septic Shock: Positive - Evaluation Current stage of sepsis: Septic shock - Vital Signs Reviewed: Yes Temperature: 98.8 F Heart rate: 87 Blood Pressure: 83/51 Respiratory Rate: 20 O2 Sat by Pulse Oximetry: 90 - Examination Date exam was performed: 03/09/21 Time exam was performed: 12:15 Heart: Regular rate/rhythm, S1, S2 Lungs: Crackles Peripheral pulses: 3+ Normal Peripheral pulse location: Radial Capillary refill: <2 Seconds Skin examination: Normal turgor
[2021-03-09] MEDS ORDERED: NOREPINEPHRINE 4 MG in D5W 250 ML IV SCH (20:00)
[2021-03-09] MEDS: CEFTRIAXONE 1 GM/NS 50 ML 1 GM/50 ML BAG IV SCH (21:00)
[2021-03-09] MEDS ORDERED: NAPROXEN 250 MG TAB PO PRN (21:04)
[2021-03-09] MEDS ORDERED: CEFTRIAXONE 500 MG/VIAL ONE (21:21)
[2021-03-09] MEDS ORDERED: ONDANSETRON 4 MG/2 ML VIAL ONE (21:24)
[2021-03-09] MEDS ORDERED: NA CHLORIDE 0.9% 100 ML ONE (21:32)
[2021-03-10] MEDS: CLINDAMYCIN INJ 600 MG in NA CHLORIDE 0.9% 50 ML IV SCH ×2 (00:23→08:56)
[2021-03-10] MEDS ORDERED: CLINDAMYCIN 900MG/D5W 0 MG/0 ML IVPB IV ONE (00:44)
[2021-03-10] MEDS ORDERED: CLINDAMYCIN 600MG/D5W 600 MG/50 ML BAG IV ONE (00:47)
[2021-03-10] MEDS: ALBUTEROL 2.5 MG/3 ML NEB SOL NEB SCH ×4 (02:00→20:00)
[2021-03-10] MEDS: IPRATROPIUM BROM 0.5MG/2.5ML NEB SCH ×4 (02:00→20:00)
[2021-03-10 02:54] VITALS: BMI 20.4
[2021-03-10] MEDS ORDERED: ACETAMINOPHEN 500 MG TAB ONE (04:11)
[2021-03-10 05:19] LABS: Absolute Lymphocytes (CBC) 0.8 K/uL (0.7-4.9); Basophils % 0.1 % (0-1.3); Hematocrit 31.8 % (36.0-45.0); MPV 7.2 fL (7.6-11.3); RBC Red Blood Cell Count 3.83 M/uL (3.86-4.86)
[2021-03-10 05:37] LABS: BUN Blood Urea Nitrogen 16 mg/dL (7-18); Bicarbonate 22 mmol/L (21-32); Glucose Level 71 mg/dL (74-106); HDL Cholesterol 54 mg/dL (40-60); LDL Cholesterol, Calculated 21 (<130); Sodium Level 141 mmol/L (136-145)
[2021-03-10 05:44] LABS: Potassium 2.7 mmol/L (3.5-5.1)
[2021-03-10] MEDS: KCL 20 MEQ/100 mL IVPB 20 MEQ/100 ML BAG IV SCH ×3 (06:47→11:22)
[2021-03-10] MEDS ORDERED: KCL 20 MEQ/100 mL IVPB 20 MEQ/100 ML BAG IV ONE ×2 (07:08→08:06)
[2021-03-10] MEDS ORDERED: ALBUTEROL 2.5 MG/3 ML NEB SOL ONE (08:04)
[2021-03-10] MEDS ORDERED: IPRATROPIUM BROM 0.5MG/2.5ML ONE (08:04)
[2021-03-10 08:14] LABS: Blood Morphology Comment NOT SEEN (NOT SEEN); Platelet Estimate ADEQ
[2021-03-10] MEDS: ENOXAPARIN 40 MG/0.4 ML SQ SCH (08:57)
[2021-03-10] MEDS ORDERED: METHYLPREDNISOLONE 40 MG INJ IV SCH (09:00)
[2021-03-10] MEDS: LISDEXAMFETAMINE DIMESYLATE 40 MG PO SCH (09:00)
[2021-03-10] MEDS ORDERED: AZITHROMYCIN IV 500 MG in NA CHLORIDE 0.9% 250 ML IVPB SCH (09:00)
[2021-03-10] MEDS ORDERED: ENOXAPARIN 40 MG/0.4 ML SQ ONE (09:11)
[2021-03-10] MEDS: PANTOPRAZOLE 40MG TABLET PO SCH (10:17)
[2021-03-10] MEDS: NA CHLORIDE 0.9% 1,000 ML IV SCH (10:22)
[2021-03-10] MEDS: CEFTRIAXONE 1 GM/NS 50 ML 1 GM/50 ML BAG IV SCH (10:37)
--- NOTE | 2021-03-10 12:36 | P.CNS ---
Date of Consult: 03/10/21 Chief Complaint: Shortness of breath History of Present Illness: Patient is 60 years old with a history of COPD tobacco abuse mated with shortness of breath some bloodstained sputum intermittent wheezing has an extensive pneumonia on the right side currently hypoxic patient later developed some hypotension has been vaccinated against Covid Allergies No Known Allergies Allergy (Verified 04/08/14 03:28) Home Medications: Albuterol Sulfate [Albuterol Sulfate 0.083% Neb Soln] 1 puff IH TID PRN 03/09/21 Diphenhydramine HCl [Allergy] 25 mg PO BEDTIME 03/09/21 Lisdexamfetamine Dimesylate [Vyvanse] 40 mg PO DAILY 03/09/21 Mirtazapine 15 mg PO BEDTIME 03/09/21 Pantoprazole [Protonix Tab] 40 mg PO DAILY 03/09/21 Pramipexole Di-HCl [Mirapex] 0.5 mg PO BEDTIME 03/09/21 - Past Medical/Surgical History Diabetic: No -: Restless leg syndrome -: Tobacco abuse -: Degenerative disc and joint disease -: GERD -: Neuropathy -: Anxiety -: History of DVT in 2013, treated -: COPD -: Neck surgery -: -: Breast augmentation -: Fatty tumor removed to the left chest Psychosocial/ Personal History: Patient is - Family History Brother Medical History: Cancer Father Medical History: Cancer Notes: Esophageal cancer - Social History Smoking Status: Current some day smoker Alcohol use: Yes CD- Drugs: No Caffeine use: Yes Place of Residence: Home Physical Examination Temp Pulse Resp BP Pulse Ox 97.0 F 87 20 91/54 L 94 03/10/21 11:00 03/10/21 11:00 03/10/21 11:00 03/10/21 11:00 03/10/21 11:00 - Problems (1) Pneumonia Current Visit: No Status: Acute Plan: Patient is 60 years of age admitted with pneumonia predominantly affecting the right side of the lung labs reviewed white count is mildly elevated blood cultures negative start on IV levofloxacin DC Rocephin and Zithromax changed to p.o. prednisone continue with bronchodilators Qualifiers: Pneumonia type: due to unspecified organism
[2021-03-10] MEDS ORDERED: Levofloxacin 750mg IV 750 MG/150 ML BAG IV SCH (13:00)
--- NOTE | 2021-03-10 13:32 | P.PN ---
Subjective Date of Service: 03/10/21 Chief Complaint: Shortness of breath Patient states she feels much better. Oxygen weaned down to 2 L. She was hypotensive last night and was transferred to the ICU on Levophed drip. Levophed drip weaned off. Blood pressure is stable. Patient transferred back to the floor. Physical Examination - Vital Signs Temperature: 97.0 F Blood Pressure: 91/54 Pulse: 87 Respirations: 20 Pulse Ox (%): 94 Assessment And Plan - Current Problems (Diagnosis) (1) Septic shock Current Visit: Yes Status: Acute (2) Acute respiratory failure with hypoxia Current Visit: Yes Status: Acute (3) Pneumonia Current Visit: No Status: Acute Qualifiers: Pneumonia type: due to unspecified organism (4) Polysubstance abuse Current Visit: Yes Status: Acute - Plan General: Not in acute distress. Eyes: anicteric sclera. Conjunctiva not pale. ENT: Moist oral mucosa. O2 by nasal cannula. Neck: Supple, no elevated JVD Chest: Symmetrical breathing movement. Lungs: Right-sided crackles. Adequate breath sounds bilaterally. No rhonchi. Heart: Heart sounds 1 and 2 heard and normal, normal rate, regular rhythm. No murmur. Abdomen: Soft, nondistended, nontender, normal bowel sounds, no organomegaly. Extremities: No pitting edema bilateral lower extremities, no digital cyanosis. Neurology: Oriented x3, no focal motor deficits. Psychiatry: Normal thought content, normal behavior. Skin: Warm and dry. No rashes or ulcers. Continue IV Rocephin, Zithromax and clindamycin. Blood cultures no growth to date. Follow cultures Chest physiotherapy Pulmonary input appreciated. Antibiotics changed to IV Levaquin. Pain management for pleurisy as needed. Wean oxygen as tolerated. Monitor CBC and blood chemistry. Optimize electrolytes. Smoking cessation advised.
[2021-03-10] MEDS: LORAZEPAM 0.5 MG TABLET PO PRN (14:57)
[2021-03-10] MEDS ORDERED: POTASSIUM CL SA 10 MEQ TAB PO ONE (18:00)
[2021-03-10] MEDS ORDERED: PRAMIPEXOLE 0.25 MG TAB PO SCH (21:00)
[2021-03-10] MEDS: predniSONE 20 MG TAB PO SCH (21:37)
[2021-03-10] MEDS: MIRTAZAPINE 15 MG TAB PO SCH (21:37)
[2021-03-10] MEDS: MORPHINE 2 MG/ML SYR IV PRN (21:37)
[2021-03-11] MEDS: IPRATROPIUM BROM 0.5MG/2.5ML NEB SCH ×4 (02:00→19:45)
[2021-03-11] MEDS: ALBUTEROL 2.5 MG/3 ML NEB SOL NEB SCH ×4 (02:00→19:45)
[2021-03-11] MEDS: LORAZEPAM 0.5 MG TABLET PO PRN ×3 (02:19→20:40)
[2021-03-11] MEDS: MORPHINE 2 MG/ML SYR IV PRN ×3 (02:28→20:40)
[2021-03-11] MEDS: NA CHLORIDE 0.9% 1,000 ML IV SCH ×2 (02:29→15:14)
[2021-03-11 06:00] LABS: Absolute Lymphocytes (CBC) 0.5 K/uL (0.7-4.9); Basophils % 0.1 % (0-1.3); Hematocrit 32.4 % (36.0-45.0); Lymphocytes % 2.5 % (15.3-44.8); MPV 7.7 fL (7.6-11.3); RBC Red Blood Cell Count 3.87 M/uL (3.86-4.86)
[2021-03-11 06:21] LABS: BUN Blood Urea Nitrogen 13 mg/dL (7-18); Bicarbonate 23 mmol/L (21-32); Glucose Level 97 mg/dL (74-106); Potassium 3.4 mmol/L (3.5-5.1); Sodium Level 142 mmol/L (136-145)
[2021-03-11 08:56] LABS: Blood Morphology Comment NOT SEEN (NOT SEEN); Dohle Bodies PRESENT; Platelet Estimate ADEQ
[2021-03-11] MEDS: LISDEXAMFETAMINE DIMESYLATE 40 MG PO SCH (09:00)
[2021-03-11] MEDS: ENOXAPARIN 40 MG/0.4 ML SQ SCH (10:41)
[2021-03-11] MEDS: PANTOPRAZOLE 40MG TABLET PO SCH (10:41)
[2021-03-11] MEDS: predniSONE 20 MG TAB PO SCH (10:41)
[2021-03-11] MEDS: levoFLOXacin 750 MG TAB PO SCH (10:42)
--- NOTE | 2021-03-11 14:36 | P.PN ---
Subjective Date of Service: 03/11/21 Chief Complaint: Shortness of breath Leukocytosis is worse today but patient states feels better than yesterday. She is currently tolerating room air. Blood pressure has been stable. Physical Examination - Vital Signs Temperature: 97.9 F Blood Pressure: 108/53 Pulse: 92 Respirations: 18 Pulse Ox (%): 96 - Physical Exam General: Alert, In no apparent distress, Oriented x3 HEENT: Mucous membr. moist/pink Neck: JVD not distended Respiratory: Crackles/rales (Right lower lobe.) Cardiovascular: No edema, Regular rate/rhythm, Normal S1 S2 Gastrointestinal: Soft and benign, Non-distended, No tenderness Musculoskeletal: No swelling, No tenderness Integumentary: No rashes, No erythema Neurological: Normal speech, Normal strength at 5/5 x4 extr Assessment And Plan - Current Problems (Diagnosis) (1) Septic shock Current Visit: Yes Status: Acute (2) Acute respiratory failure with hypoxia Current Visit: Yes Status: Acute (3) Pneumonia Current Visit: No Status: Acute Qualifiers: Pneumonia type: due to unspecified organism (4) Polysubstance abuse Current Visit: Yes Status: Acute - Plan General: Not in acute distress. Eyes: anicteric sclera. Conjunctiva not pale. ENT: Moist oral mucosa. O2 by nasal cannula. Neck: Supple, no elevated JVD Chest: Symmetrical breathing movement. Lungs: Right-sided crackles. Adequate breath sounds bilaterally. No rhonchi. Heart: Heart sounds 1 and 2 heard and normal, normal rate, regular rhythm. No murmur. Abdomen: Soft, nondistended, nontender, normal bowel sounds, no organomegaly. Extremities: No pitting edema bilateral lower extremities, no digital cyanosis. Neurology: Oriented x3, no focal motor deficits. Psychiatry: Normal thought content, normal behavior. Skin: Warm and dry. No rashes or ulcers. Pulmonary input appreciated. Antibiotics changed to IV Levaquin. Blood cultures no growth to date. Patient currently tolerating room air Chest physiotherapy Pain management for pleurisy as needed. Monitor CBC and blood chemistry. Optimize electrolytes. Smoking cessation advised. Possible discharge tomorrow if patient continue to improve clinically.
[2021-03-11] MEDS ORDERED: POTASSIUM CL SA 10 MEQ TAB PO ONE (14:58)
[2021-03-11] MEDS ORDERED: PRAMIPEXOLE 0.25 MG TAB PO SCH (19:00)
[2021-03-11] MEDS: predniSONE 10 MG TAB PO SCH (20:40)
[2021-03-11] MEDS: MIRTAZAPINE 15 MG TAB PO SCH (20:40)
[2021-03-12] MEDS: IPRATROPIUM BROM 0.5MG/2.5ML NEB SCH ×3 (01:40→14:00)
[2021-03-12] MEDS: ALBUTEROL 2.5 MG/3 ML NEB SOL NEB SCH ×3 (01:40→14:00)
[2021-03-12] MEDS: MORPHINE 2 MG/ML SYR IV PRN (01:40)
[2021-03-12] MEDS: NA CHLORIDE 0.9% 1,000 ML IV SCH (03:37)
[2021-03-12 06:25] LABS: Absolute Lymphocytes (CBC) 0.8 K/uL (0.7-4.9); Basophils % 0.2 % (0-1.3); Hematocrit 34.3 % (36.0-45.0); Lymphocytes % 4.6 % (15.3-44.8); RBC Red Blood Cell Count 4.13 M/uL (3.86-4.86)
[2021-03-12 06:55] LABS: BUN Blood Urea Nitrogen 12 mg/dL (7-18); Bicarbonate 26 mmol/L (21-32); Glucose Level 97 mg/dL (74-106); Potassium 3.6 mmol/L (3.5-5.1); Sodium Level 142 mmol/L (136-145)
[2021-03-12 08:53] LABS: Blood Morphology Comment NOT SEEN (NOT SEEN); Platelet Estimate ADEQ
[2021-03-12] MEDS: LISDEXAMFETAMINE DIMESYLATE 40 MG PO SCH (09:00)
[2021-03-12] MEDS: levoFLOXacin 750 MG TAB PO SCH (10:01)
[2021-03-12] MEDS: ENOXAPARIN 40 MG/0.4 ML SQ SCH (10:01)
[2021-03-12] MEDS: PANTOPRAZOLE 40MG TABLET PO SCH (10:01)
[2021-03-12] MEDS: predniSONE 10 MG TAB PO SCH (10:01)
[2021-03-12] MEDS: LORAZEPAM 0.5 MG TABLET PO PRN (10:09)
--- NOTE | 2021-03-12 10:35 | P.DS ---
Admission Date: 03/09/21 Discharge Date: 03/12/21 Disposition: ROUTINE DISCHARGE Discharge Condition: FAIR Reason for Admission: Shortness of breath Consultations: Pulmonary-Dr. Ruiz. - Problems (1) Septic shock Current Visit: Yes Status: Acute (2) Acute respiratory failure with hypoxia Current Visit: Yes Status: Acute (3) Pneumonia Current Visit: No Status: Acute Qualifiers: Pneumonia type: due to unspecified organism Laterality: right (4) Polysubstance abuse Current Visit: Yes Status: Acute Brief History of Present Illness: 60-year-old woman with a history of COPD, tobacco abuse, and history of DVT presented to the emergency department with a complaint of sudden onset shortness of breath which occurred this morning. Symptoms associated with general muscle aches and pleurisy. She also reports cough productive of blood-stained sputum and intermittent wheezing. Patient denied any fever. She denied any nausea or vomiting. CTA thorax done in the emergency department tonight from embolism but demonstrated extensive right-sided pneumonia. She was requiring 4 L of oxygen for good SaO2. Patient tachypneic and tachycardic in the ED. She later developed hypotension. Lactic acid elevated. She is vaccinated for COVID. Sepsis protocol initiated. Patient admitted for further management. Hospital Course: Patient admitted to the medical floor for treatment of severe pneumonia with hypoxia. Patient developed hypotension and diagnosis septic shock, resuscitated with IV normal saline, later started on Levophed drip and transferred to the ICU due to persistent hypotension. Her blood pressure responded to treatment and became normotensive. She was treated with aggressive antibiotic therapy that included IV Rocephin and Zithromax and clindamycin. Later seen by pulmonary who transition her to IV Levaquin pending to oral Levaquin as her respiratory condition responded to treatment. She was weaned from 4 L of oxygen to room air. She is currently tolerating room air with good oxygen saturation. Patient has been eating well and ambulate independently. She has significantly improved with treatment and deemed stable for discharge. Her pneumonia could be related to vaping. She has been advised to quit Vvaping. She is prescribed Advair and prednisone taper for COPD. Vital Signs/Physical Exam: Temp Pulse Resp BP Pulse Ox 97.4 F 74 16 137/66 98 03/12/21 08:00 03/12/21 08:00 03/12/21 08:00 03/12/21 08:00 03/12/21 08:00 General: Alert, In no apparent distress, Oriented x3 HEENT: Mucous membr. moist/pink Neck: JVD not distended Respiratory: Crackles/rales (Mild right-sided crackles.) Cardiovascular: Regular rate/rhythm, Normal S1 S2 Gastrointestinal: Normal bowel sounds, Soft and benign, Non-distended, No tenderness Musculoskeletal: No swelling Integumentary: No rashes Neurological: Normal strength at 5/5 x4 extr Laboratory Data at Discharge: WBC 17.30 K/uL (4.3-10.9) H 03/12/21 05:51 Hgb 11.5 g/dL (12.0-15.0) L 03/12/21 05:51 Hct 34.3 % (36.0-45.0) L 03/12/21 05:51 Plt Count 221 K/uL (152-406) 03/12/21 05:51 PT 12.7 SECONDS (9.5-12.5) H 03/09/21 10:44 INR 1.10 03/09/21 10:44 Sodium 142 mmol/L (136-145) 03/12/21 05:51 Potassium 3.6 mmol/L (3.5-5.1) 03/12/21 05:51 BUN 12 mg/dL (7-18) 03/12/21 05:51 Creatinine 0.42 mg/dL (0.55-1.3) L 03/12/21 05:51 Glucose 97 mg/dL (74-106) 03/12/21 05:51 Magnesium 2.0 mg/dL (1.8-2.4) 03/09/21 04:30 Total Bilirubin 0.4 mg/dL (0.2-1.0) 03/09/21 04:30 AST 37 U/L (15-37) 03/09/21 04:30 ALT 34 U/L (12-78) 03/09/21 04:30 Alkaline Phosphatase 90 U/L (45-117) 03/09/21 04:30 Triglycerides 49 mg/dL (<150) 03/10/21 05:00 Cholesterol 85 mg/dL (<200) 03/10/21 05:00 HDL Cholesterol 54 mg/dL (40-60) 03/10/21 05:00 Cholesterol/HDL Ratio 1.57 03/10/21 05:00 Home Medications: Albuterol Sulfate [Albuterol Sulfate 0.083% Neb Soln] 1 puff IH TID PRN 03/09/21 Diphenhydramine HCl [Allergy] 25 mg PO BEDTIME 03/09/21 Lisdexamfetamine Dimesylate [Vyvanse] 40 mg PO DAILY 03/09/21 Mirtazapine 15 mg PO BEDTIME 03/09/21 Pantoprazole [Protonix Tab*] 40 mg PO DAILY 03/09/21 Pramipexole Di-HCl [Mirapex] 0.5 mg PO BEDTIME 03/09/21 Fluticasone/Salmeterol [Advair 250-50 Diskus] 1 each IH BID #60 blst.w.dev 03/12/21 levoFLOXacin [Levaquin*] 750 mg PO DAILY #10 tab 03/12/21 predniSONE [Deltasone*] 10 mg PO BID #15 tab 03/12/21 New Medications: Fluticasone/Salmeterol [Advair 250-50 Diskus] 1 each IH BID #60 blst.w.dev predniSONE [Deltasone*] 10 mg PO BID #15 tab levoFLOXacin [Levaquin*] 750 mg PO DAILY #10 tab Diet: AHA Activity: Ad cheryl Followup: Erick Ruiz MD [ACTIVE - CAN ADMIT] - 1-2 Weeks NONE,NONE [Primary Care Provider] - Time spent managing pt's care (in minutes): 37
--- NOTE | 2021-03-12 10:53 | P.PN ---
Subjective Date of Service: 03/12/21 Chief Complaint: Pneumonia Subjective: Improving (Patient is improving still has some cough shortness of breath very anxious) Review of Systems General: Weakness Respiratory: Cough, Shortness of Breath Physical Examination - Vital Signs Temperature: 97.4 F Blood Pressure: 137/66 Pulse: 74 Respirations: 16 Pulse Ox (%): 98 - Physical Exam General: Alert, Oriented x3 Respiratory: Crackles/rales (The right side) Cardiovascular: No edema, Regular rate/rhythm Assessment & Plan - Problems (Diagnosis) (1) Pneumonia Current Visit: No Status: Acute Plan: Patient is doing better improving oxygenation satisfactory white count is slightly lower is extensive pneumonia on the right side continue with levofloxacin 750 mg daily with low-dose prednisone and bronchodilators at home cultures negative patient very anxious vital signs in our stable DC IV fluids plan to discharge follow-up with me in 2 weeks cultures are all negative Qualifiers: Pneumonia type: due to unspecified organism Laterality: right
[2021-03-12 16:57] VITALS: BP 134/77; TEMP 97
[2021-03-12 18:10] VITALS: O2SAT 95
== END 2021-03-12 18:06 | disposition home or self-care (01) | DRG 871 ==
LOC: ER 04:07 → ERHOLD 08:39 → 2ND 10:14 → ERHOLD 19:25 → 2ND 03-10 08:40
PROVIDERS: ADMIT Internal Medicine; ATTEND Internal Medicine
DX: A41.9 Sepsis, unspecified organism (principal); J18.9 Pneumonia, unspecified organism; R65.21 Severe sepsis with septic shock; J96.01 Acute respiratory failure with hypoxia; J44.0 Chronic obstructive pulmonary disease with (acute) lower respiratory infection; F17.290 Nicotine dependence, other tobacco product, uncomplicated; F19.10 Other psychoactive substance abuse, uncomplicated; Z86.718 Personal history of other venous thrombosis and embolism; K21.9 Gastro-esophageal reflux disease without esophagitis; Z20.822 Contact with and (suspected) exposure to COVID-19
CPT/HCPCS: 0240U; 36415; 71045; 71275; 80048; 80061; 80076; 80307; 81003; 83605; 83735; 83880; 84132; 84145; 84484; 85025; 85610; 87040; 93005; 94760; 96361; 96365; 96366; 96368; 99285; J0456; J0696; J1650; J2270; J2405; J2920; J3480; J7030; J7050; J7512; Q9967

== ENCOUNTER 2025-03-12 21:54 | Emergency (ER) | payer OTHER ==
[2025-03-12] MEDS ORDERED: ROCURONIUM 50 MG/5 ML VIAL IV ONE (21:55)
[2025-03-12] MEDS ORDERED: LORazepam 2 MG/ML VIAL ONE (22:05)
[2025-03-12 22:19] LABS: Absolute Lymphocytes (CBC) 2.0 K/uL (0.7-4.9); Hematocrit 44.2 % (36.0-45.0); Hemoglobin 14.7 g/dL (12.0-15.0); MCH 29.0 pg (27.0-35.0); MCHC 33.3 g/dL (32.0-36.0); MCV 87.0 fL (80-100); MPV 7.6 fL (7.6-11.3); Nucleated RBC Absolute Count 0.0 (0-0); Nucleated Red Blood Cells % 0.0 % (0-0); RBC Red Blood Cell Count 5.08 M/uL (3.86-4.86); White Blood Count 9.40 thou/uL (4.3-10.9)
[2025-03-12 22:27] LABS: PT Prothrombin Time 11.4 SECONDS (10-13.0); PTT, Activated Partial Thromb 32.7 SECONDS (27.2-37.4); Protime INR 1.01
[2025-03-12 22:42] LABS: ALT/SGPT 31.0 U/L (13-56); AST/SGOT 29.0 U/L (15-37); Albumin 3.8 g/dL (3.4-5.0); Albumin/Globulin Ratio 1.0 (1.1-1.8); Alkaline Phosphatase 91.0 U/L (45-117); Anion Gap 8.1 mEq/L (5.0-15.0); BUN Blood Urea Nitrogen 18.0 mg/dL (7-18); Globulin 3.7 g/dL (2.3-3.5); Glucose Level 108.0 mg/dL (74-106); Potassium 4.1 mEq/L (3.5-5.1); Troponin High Sensitivity 7.2 pg/mL (<58.9)
[2025-03-12] MEDS ORDERED: ONDANSETRON 4 MG/2 ML VIAL ONE (22:43)
[2025-03-12] MEDS ORDERED: FLUMAZENIL 0.1 MG/ML (5 mL VIAL) IV ONE (23:53)
[2025-03-12] MEDS ORDERED: NA CHLORIDE 0.9% 1,000 ML ONE (23:54)
[2025-03-12] MEDS ORDERED: NALOXONE 0.4 MG/ML VIAL ONE (23:55)
[2025-03-13] MEDS ORDERED: KETAMINE HCL IN 0.9 % NACL 50 MG/5 ML SYRINGE IV ONE ×2 (00:06→00:07)
--- NOTE | 2025-03-13 00:14 | RAD REPORT ---
ADDENDUM #1 Critical findings discussed with DINO Mansfield at 12: 12 AM Central standard time. Electronically signed by: Andie Lugo MD 03/13/2025 12:21 AM Novint End of Addendum EXAM DESCRIPTION: Ct Stroke Brain Wo Cont CLINICAL HISTORY: 64 years Female STROKE ALERT COMPARISON: None TECHNIQUE: Images were obtained in axial, sagittal, and coronal planes. This exam was performed according to our departmental dose-optimization program which includes use of Automated Exposure Control, adjustment of the mA and/or kV according to patient size and/or use of iterative reconstruction techn ique. FINDINGS: Ventricular system appears normal. Cavum septum pellucidum identified. No abnormal increased attenuation seen. No extra-axial fluid collections noted. No evidence for skull fracture. Symmetric aeration of mastoid air cells bilaterally. Unremarkable par anasal sinuses. IMPRESSION: No acute intracranial abnormality. No evidence for hemorrhage, mass lesion, or large acute infarction . Electronically signed by: Andie Lugo MD 03/13/2025 12:03 AM Novint Due to temporary technical issues with the PACS/TabbedOut reporting system, reports are being isaias d by the in-house radiologist without review as a courtesy to ensure prompt reporting the interpreting radiologist is fully responsible for the content of the report. Transcribed Date/Time: 03/13/2025 3:06 AM
[2025-03-13] MEDS ORDERED: MIDAZOLAM HCL IN 0.9 % NACL/PF 100 MG/100 ML BAG IVPB ONE (00:21)
--- NOTE | 2025-03-13 00:23 | RAD REPORT ---
EXAM DESCRIPTION: Head angio (accession [id number]), Neck Angio (accession [id number]) CLINICAL HISTORY: 64 years Female, SLURRED SPEECH TECHNIQUE: Helical CT axial images are obtained from the base thoracic inlet through the vertex with IV contrast. Multiplanar reconstruction. MIP reconstruction plus or minus 3D image processing was also performed. NASCET criteria using the distal ICAs for comparison were used for evaluation of root tid stenosis. This exam was performed according to our departmental dose-optimization program, which includes automated exposure control, adjustment of the mA and/or kV according to patient size a nd/or use of iterative reconstruction technique. COMPARISON: Noncontrast CT brain performed same time FINDINGS: CTA BRAIN: Distal aspect of bilateral internal carotid arteries are normal in caliber and morphology without f ocal stenosis or aneurysm. Bilateral anterior and middle cerebral arteries have a normal appearance. Patent anterior communicating artery.. Basilar artery is normal in caliber and morphology without high-grade stenosis or basilar tip aneur ysm. origin left CLINICAL TRANSFORMATION SPECIALIST with aplasia left P1 segment, normal variant. Right CLINICAL TRANSFORMATION SPECIALIST emanates and basilar tip. Beyond their P1 segments, bilateral primer charger are otherwise within normal limits. Non-visuali zed right PCOM. No aneurysm, branch occlusion, arteriovenous malformation or other vascular anomalies. CTA NECK: RIGHT CAROTID: Mild atherosclerotic calcification carotid bifurcation. Cervical course of the inter nal carotid artery is within normal limits without focal stenosis, aneurysm, or dissection. Normal CCA. Origin and proximal visualized branches of the external carotid artery appears normal. LEFT CAROTID: Mild atherosclerotic calcification carotid bifurcation. Cervical course of the electrical intern al carotid artery is within normal limits without focal stenosis, aneurysm, or dissection. Normal CCA. Origin and proximal visualized branches of the external carotid artery appears normal. VERTEBRAL: Bilateral vertebral arteries have a normal appearance with left dominance. SOFT TISSUES: Unremarkable. IMPRESSION: 1. Negative CTA of the brain and neck. 2. origin left CLINICAL TRANSFORMATION SPECIALIST with aplasia left P1 segment, normal variant. Electronically signed by: Jatin Cruz MD 03/13/2025 12:16 AM CDT RP 1P Due to temporary technical issues with the PACS/RentWiki reporting system, reports are being isaias d by the in-house radiologist without review as a courtesy to ensure prompt reporting the interpreting radiologist is fully responsible for the content of the report. Transcribed Date/Time: 03/13/2025 12:23 AM
--- NOTE | 2025-03-13 00:23 | RAD REPORT ---
EXAM DESCRIPTION: Head angio (accession [id number]), Neck Angio (accession [id number]) CLINICAL HISTORY: 64 years Female, SLURRED SPEECH TECHNIQUE: Helical CT axial images are obtained from the base thoracic inlet through the vertex with IV contrast. Multiplanar reconstruction. MIP reconstruction plus or minus 3D image processing was also performed. NASCET criteria using the distal ICAs for comparison were used for evaluation of root tid stenosis. This exam was performed according to our departmental dose-optimization program, which includes automated exposure control, adjustment of the mA and/or kV according to patient size a nd/or use of iterative reconstruction technique. COMPARISON: Noncontrast CT brain performed same time FINDINGS: CTA BRAIN: Distal aspect of bilateral internal carotid arteries are normal in caliber and morphology without f ocal stenosis or aneurysm. Bilateral anterior and middle cerebral arteries have a normal appearance. Patent anterior communicating artery.. Basilar artery is normal in caliber and morphology without high-grade stenosis or basilar tip aneur ysm. origin left ETL INFORMATICA ARCHITECT with aplasia left P1 segment, normal variant. Right ETL INFORMATICA ARCHITECT emanates and basilar tip. Beyond their P1 segments, bilateral transportation maintenance operator are otherwise within normal limits. Non-visuali zed right PCOM. No aneurysm, branch occlusion, arteriovenous malformation or other vascular anomalies. CTA NECK: RIGHT CAROTID: Mild atherosclerotic calcification carotid bifurcation. Cervical course of the inter nal carotid artery is within normal limits without focal stenosis, aneurysm, or dissection. Normal CCA. Origin and proximal visualized branches of the external carotid artery appears normal. LEFT CAROTID: Mild atherosclerotic calcification carotid bifurcation. Cervical course of the sports marketing internship al carotid artery is within normal limits without focal stenosis, aneurysm, or dissection. Normal CCA. Origin and proximal visualized branches of the external carotid artery appears normal. VERTEBRAL: Bilateral vertebral arteries have a normal appearance with left dominance. SOFT TISSUES: Unremarkable. IMPRESSION: 1. Negative CTA of the brain and neck. 2. origin left ETL INFORMATICA ARCHITECT with aplasia left P1 segment, normal variant. Electronically signed by: Jatin Cruz MD 03/13/2025 12:16 AM CDT RP 1P Due to temporary technical issues with the PACS/Dialogic reporting system, reports are being isaias d by the in-house radiologist without review as a courtesy to ensure prompt reporting the interpreting radiologist is fully responsible for the content of the report. Transcribed Date/Time: 03/13/2025 12:22 AM
--- NOTE | 2025-03-13 00:29 | EDPHYS ---
Physician Documentation [facility] Name: Judith Evans Age: 64 yrs Sex: Female : 1960 Arrival Date: 03/12/2025 Time: 21:54 Bed 3 Private MD: ED Physician Mikey oPol HPI: 03/13 01:10 This 64 yrs old Female presents to ER via Wheelchair with complaints of S/S of Possible tt7 Stroke. 01:10 Patient reports that at approximately 1 PM today she started develop dizziness, slurred tt7 speech, and difficulty expressing herself. Symptoms progressively got worse until she decided to finally come into the emergency department. She has a history of cerebellar ataxia and has undergone extensive outpatient workup to help determine a cause of this. She reportedly does not have a known diagnosis of any type of neurodegenerative disease. Other medical history includes COPD and restless leg syndrome. She denies any fever or pain. Denies sick contacts. No exacerbating or alleviating factors. Historical: - Allergies: 03/12 22:07 No Known Allergies; br2 - PMHx: 22:07 Chronic obstructive lung disease; Pneumonia; RLS; br2 - Immunization history:: Adult Immunizations up to date. - Infectious Disease History:: Denies. - Social history:: Smoking status: Reported history of juuling and/or vaping. Patient uses alcohol, weekly. Patient/guardian denies using street drugs. ROS: 03/13 00:58 Constitutional: negative for fever. Cardiovascular: negative for chest pain. tt7 Respiratory: negative for shortness of breath. Abdomen/GI: negative for abdominal pain, nausea, vomiting, diarrhea. MS/Extremity: negative for injury and deformity. Skin: negative for rash. Neuro: Positive for dizziness, speech changes, Negative for headache, weakness, Exam: 01:07 Constitutional: vital signs reviewed, well appearing. Head/Face: normocephalic, tt7 atraumatic. Eyes: no conjunctival injection, anicteric sclerae, PERRLA, horizontal nystagmus in both directions, no vertical nystagmus. ENT: mucus membranes moist. Neck: trachea midline, no JVD, no meningismus. Chest/axilla: normal chest wall appearance and motion, nontender, no crepitus. Cardiovascular: regular rate and rhythm, no murmurs, no rubs, no lower extremity edema. Respiratory: normal respiratory effort, no accessory muscle use, lungs CTAB. Abdomen/GI: soft, nondistended, nontender, no guarding or rebound, negative Hinson's sign, no McBurney point tenderness. Back: normal ROM. Skin: warm, dry, intact, normal turgor, normal color, no rash. MS/ Extremity: normal ROM of extremities, no gross deformities. Neuro: alert and oriented with appropriate mental status, slurred speech with some mild expressive aphasia, follows commands, face symmetric, tongue midline, good shoulder shrug, no pronator drift and upper lower extremities, 5/5 strength in bilateral upper and lower extremities, no sensory deficits, ataxic gait but asar-an-oueb testing normal Psych: Anxious 01:17 Radiologist reports: No acute findings tt7 Vital Signs: 03/12 22:04 BP 182 / 90; Pulse 91; Resp 18; Temp 98.4; Pulse Ox 96% on R/A; Weight 48.08 kg; Height br2 5 ft. 1 in. ; Pain 0/10; 22:13 BP 109 / 66; Pulse 75; Resp 18; Temp 98.4; Pulse Ox 95% ; Pain 0/10; bm8 23:58 BP 88 / 46; Pulse 52; Resp 14; Pulse Ox 100% on 2 lpm NC; mf3 03/13 00:11 BP 87 / 45; Pulse 70; Resp 21; Pulse Ox 100% on ETT ambu; mf3 00:15 BP 223 / 116; Pulse 95; Resp 17; Pulse Ox 100% on ETT vent; mf3 00:30 BP 198 / 89; Pulse 88; Resp 14; Pulse Ox 100% on ETT vent; mf3 00:45 BP 172 / 80; Pulse 73; Resp 14; Pulse Ox 100% on ETT vent; mf3 01:14 BP 174 / 97; Pulse 70; Resp 17; Temp 98.4; Pulse Ox 100% on ETT vent; Pain 0/10; bm8 03/12 22:04 Body Mass Index 20.03 (48.08 kg, 154.94 cm) br2 03/12 22:04 Pain Scale: Adult br2 22:13 Pain Scale: Adult bm8 01:14 Pain Scale: Adult bm8 NIH Stroke Scale Scores: 03/12 22:13 NIHSS Score: 0 bm8 Cambridge Coma Score: 22:11 Eye Response: spontaneous(4). Motor Response: obeys commands(6). Verbal Response: bm8 oriented(5). Total: 15. Procedures: 03/13 01:12 Intubation: Ventilated with 100% NRB prior to procedure. O2 saturation prior to tt7 procedure was 100 %. Intubated orally using GlideScope S3 with 7.0 mm ETT. was successful on first attempt. Ventilated with Ambu bag. Tube secured with ETT romero at center of mouth measured 22 cm at lip. Placement verified by CXR, CO2 detector with (+) color change, auscultating bilateral breath sounds, O2 saturation after procedure was 99 %. Patient tolerated well. MDM: 03/12 22:01 Medical Screening Exam initiated tt7 03/13 00:48 TNKase (Tenecteplase) Screening: Contraindications: Patient reports onset of signs and tt7 symptoms of stroke greater than 6 hours ago: Yes. Data reviewed: vital signs, nurses notes, lab test result(s), EKG, radiologic studies. 00:55 ED course: Patient presented with slurred speech, some expressive aphasia, dizziness, tt7 and overall not feeling well, apparently she has a history of cerebellar ataxia and has received extensive medical workups in the past to try to identify a cause of this, patient reported that the symptoms started at 1 PM today, she is not a thrombolytic candidate due to being outside the time window, stroke alert was not called but standard stroke evaluation was ordered, the patient was quite anxious and tearful on arrival and was treated with 0.5 mg of IV Ativan, she responded well to this, laboratory studies overall reassuring, no significant acute abnormalities, while in CT the patient became very nauseous and had an episode of nonbloody nonbilious vomiting, she was treated with 1.25 mg of IV droperidol and 4 mg of IV Zofran, I independently interpreted the patient's EKG performed on 03/12/2025 at 2340. On my interpretation, EKG demonstrates normal sinus rhythm, ventricular rate 81 bpm, normal axis, normal QRS interval, normal ST segments, no STEMI. On my independent interpretation CT imaging of the brain without contrast does not demonstrate any acute intracranial hemorrhage or findings of cerebral edema. At approximately 2355 patient suddenly became unresponsive, would not rouse to sternal rub at all, pupils were pinpoint, patient was hypotensive with systolic blood pressure in the 80s, 0.4 mg of IV Narcan were administered with no effect, due to the patient's previous vomiting, sudden change in mental status, and history of a potentially neurodegenerative disease, decision was made to intubate the patient for airway protection and to facilitate secured transportation to a facility with more resources, I discussed this with the patient's who agrees with this plan, patient was given 100 mg of IV ketamine and 100 mg of IV rocuronium, was intubated without issue, patient became hypertensive during the intubation, she was sedated with Versed infusion, 2 g of IV Keppra were given in case patient could be having subclinical seizures, CT angiograms were officially read by the radiologist and negative for acute findings, I updated the patient's and brother regarding her ED course and plan for transfer for higher level of care to a neuro ICU as the patient likely needs EEG and MRI. 01:17 ED course: This patient has a medical condition that impairs one or more vital organ tt7 systems and has a high probability of imminent or life threatening deterioration in their condition. Management of this patient required my highest level of care and included frequent personal assessment and intervention. I personally spent 40 minutes of critical care time, exclusive of time spent on separately billable procedures, in the evaluation and management of this patient's condition. This critical care time included independently obtaining a history, examining the patient, pulse oximetry, cardiac telemetry monitoring, ordering and review of studies laboratory and imaging studies, development of a management plan, evaluation of patient's response to treatment, frequent reassessment, and discussion with other healthcare providers. 03/12 22:03 Order name: CBC with Diff; Complete Time: :34 tt7 03/12 22:03 Order name: High Sensitivity Troponin; Complete Time: 22:53 tt7 03/12 22:03 Order name: Protime (+inr); Complete Time: :34 tt7 03/12 22:03 Order name: Ptt, Activated; Complete Time: :34 tt7 03/12 22:03 Order name: UDS tt7 03/12 22:03 Order name: CMP; Complete Time: 22:53 tt7 03/12 22:16 Order name: Glucose, Ancillary Testing; Complete Time: :34 EDMS 03/13 00:26 Order name: TSH; Complete Time: 01:13 tt7 03/13 00:26 Order name: T4 Free; Complete Time: 01:13 tt7 03/13 00:26 Order name: ETOH Level; Complete Time: 01:13 tt7 03/13 01:12 Order name: ABG Arterial Blood Gas; Complete Time: 01:26 EDMS 03/12 22:03 Order name: CT Head Angio 03/12 22:03 Order name: CT Neck Angio 03/12 22:03 Order name: CT Stroke Brain w/o Contrast tt7 03/12 23:26 Order name: Chest Single View EDMS 03/13 00:16 Order name: XRAY Chest (1 view) [facility] 03/12 22:03 Order name: Accucheck; Complete Time: 22:11 tt7 03/12 22:03 Order name: Cardiac monitoring; Complete Time: 22:11 tt7 03/12 22:03 Order name: EKG - Nurse/Tech; Complete Time: 22:11 03/12 22:03 Order name: IV Saline Lock; Complete Time: 22:11 03/12 22:03 Order name: Labs collected and sent; Complete Time: 22:11 03/12 22:03 Order name: NPO; Complete Time: 22:11 03/12 22:03 Order name: O2 Per Protocol; Complete Time: 22:11 03/12 22:03 Order name: O2 Sat Monitoring; Complete Time: 22:11 03/12 22:03 Order name: Stroke Swallow Screen; Complete Time: 22:20 Administered Medications: 03/12 22:11 Drug: Ativan IVP 0.5 mg IVP once Route: IVP; Site: right forearm; 03/13 01:17 Follow up: Response: No adverse reaction 03/12 22:48 Drug: Droperidol IVP 1.25 mg IVP once Route: IVP; Site: right forearm; 03/13 01:17 Follow up: Response: No adverse reaction 03/12 22:48 Drug: Ondansetron IVP 4 mg IVP once; over 2 minutes Route: IVP; Site: right forearm; 03/13 01:17 Follow up: Response: No adverse reaction bm8 00:00 Drug: Naloxone IVP 0.4 mg IVP once Route: IVP; Site: right antecubital; mf3 01:16 Follow up: Response: No adverse reaction bm8 00:00 Drug: NS 0.9% IV 1000 ml IV at 1000 ml once; to be given as a bolus over 60 minutes mf3 Route: IV; Rate: 1000 ml; Site: right antecubital; 01:16 Follow up: Response: No adverse reaction; IV Status: Completed infusion bm8 00:09 Drug: Ketamine IVP 100 mg IVP once Route: IVP; Site: right hand; mf3 01:16 Follow up: Response: No adverse reaction bm8 00:10 Drug: Rocuronium IVP 100 mg IVP once Route: IVP; Site: right hand; mf3 01:15 Follow up: Response: No adverse reaction bm8 00:27 Drug: Midazolam IVP or IV 0.01 mg/kg/h IV at calculated rate See Administration mf3 Instructions; (Standard concentration: 100 mg / 100 mL NS); Recommended max rate 0.1 mg/kg/hr; Titrate 0.01 mg/kg/hr as often as every 30 minutes to achieve goal (see titration policy); Goal parameter RASS 0 to -2 Route: IV; Rate: calculated rate; Site: right forearm; 01:16 Follow up: Response: No adverse reaction; IV Status: Infusion continued upon transfer bm8 00:32 CANCELLED (Other Intervention Used): [id number] mg IVP once tt7 00:45 Drug: Keppra IV 2000 mg IV at bolus once Route: IV; Rate: bolus; Site: left forearm; mf3 01:15 Follow up: Response: No adverse reaction; IV Status: Completed infusion bm8 Point of Care Testing: Blood Glucose: 03/12 22:07 Blood Glucose: 94 mg/dL; br2 Ranges: Critical Glucose Levels:Adult <50 mg/dl or >400 mg/dl <40 mg/dl or >180 mg/dl Disposition: 03/13 01:26 Co-signature as Attending Physician, Mikey Pool DO. tt7 Disposition Summary: 03/13/25 00:28 Transfer Ordered Notes: Transfer Location: [facility] tt7 Reason: Higher level of care tt7 Condition: Critical tt7 Problem: new tt7 Symptoms: have worsened tt7 Accepting Physician: Dr. Meek(03/13/25 01:34) bm8 Diagnosis - Altered mental status, unspecified tt7 - Unspecified nystagmus tt7 - Ataxia, unspecified tt7 - Slurred speech tt7 - Ferny coma scale score 3-8, unspecified time tt7 Forms: - Medication Reconciliation Form tt7 - SBAR form tt7 NIH Stroke Scale - NIH Stroke Score Date: 03/12/2025 Time: 22:13 Total Score = 0 10. Dysarthria (speech clarity - read or repeat words) - 0(Normal) 11. Extinction and Inattention (visual/tactile/auditory/spatial/personal) - 0(No abnormality) 1a. Level of Consciousness (LOC) - 0(Alert) 1b. Level of Consciousness (LOC) (Month \T\ Age) - 0(Both) 1c. LOC Commands (Open \T\ Closes Eyes/Water Softener Installer) - 0(Both) 2. Best Gaze (Lateral Gaze Paresis) - 0(Normal) 3. Visual Field Loss - 0(No visual loss) 4. Facial Palsy - 0(Normal) 5a. Left Arm: Motor (10-second hold) - 0(No drift) 5b. Right Arm: Motor (10-second hold) - 0(No drift) 6a. Left Leg: Motor (5-second hold - always test supine) - 0(No drift) 6b. Right Leg: Motor (5-second hold - always test supine) - 0(No drift) 7. Limb Ataxia (finger/nose \T\ heel/moseley - test with eyes open) - 0(Absent) 8. Sensory Loss (pinprick arms/legs/face) - 0(Normal) 9. Best Language: Aphasia (description/naming/reading) - 0(No aphasia) Initials: bm8 Signatures: Dispatcher [employer] EDMS Arron Davis RN RN bm8 Natalie Manrique RN RN br2 Tawana Cunningham RN RN mf3 Mikey Pool, DO DO tt7 Corrections: (The following items were deleted from the chart) 03/12 22:03 22:03 CBC+H.LAB.BRZ ordered. EDMS EDMS 22: 22:03 Troponin High Sensitivity+C.LAB.BRZ ordered. EDMS EDMS 22:03 22:03 PROTIME (+INR)+COAG.LAB.BRZ ordered. [facility] EDWA 22:03 PTT, ACTIVATED+COAG.LAB.BRZ ordered. [facility] 22:03 URINE DRUG SCREEN+UC.LAB.BRZ ordered. [facility] EDWA 22:03 COMPREHENSIVE METABOLIC PANEL+C.LAB.BRZ ordered. [facility] 22:03 Head Angio+CT.RAD.BRZ ordered. [facility] : 22:03 Neck Angio+CT.RAD.BRZ ordered. [facility] : 22:03 CT-STROKE BRAIN W/O CONTRAST+CT.RAD.BRZ ordered. [facility] 22:04 Chest Single View+RAD.RAD.BRZ ordered. [facility] 03/13 00:16 00:16 Chest Single View+RAD.RAD.BRZ ordered. [facility] 00:27 00:27 ETHANOL+C.LAB.BRZ ordered. [facility] 00:32 00:24 Rocuronium IVP 50 mg IVP once ordered. tt7 tt7 01: 00:55 ED course: Patient presented with slurred speech, some expressive tt7 aphasia, and overall not feeling well, apparently she has a history of cerebellar ataxia and has received extensive medical workups in the past to try to identify a cause of this, patient reported that the symptoms started at 1 PM today, she is not a thrombolytic candidate due to being outside the time window, stroke alert was not called but standard stroke evaluation was ordered, the patient was quite anxious and tearful on arrival and was treated with 0.5 mg of IV Ativan, she responded well to this, on my independent interpretation CT imaging of the brain without contrast does not demonstrate any acute intracranial hemorrhage or findings of cerebral edema, laboratory studies are overall reassuring without significant acute abnormalities, while in CT the patient became very nauseous and had an episode of nonbloody nonbilious vomiting, she was treated with 1.25 mg of IV droperidol,. tt7 01:07 00:55 ED course: Patient presented with slurred speech, some expressive tt7 aphasia, dizziness, and overall not feeling well, apparently she has a history of cerebellar ataxia and has received extensive medical workups in the past to try to identify a cause of this, patient reported that the symptoms started at 1 PM today, she is not a thrombolytic candidate due to being outside the time window, stroke alert was not called but standard stroke evaluation was ordered, the patient was quite anxious and tearful on arrival and was treated with 0.5 mg of IV Ativan, she responded well to this, laboratory studies overall reassuring, no significant acute abnormalities, while in CT the patient became very nauseous and had an episode of nonbloody nonbilious vomiting, she was treated with 1.25 mg of IV droperidol and 4 mg of IV Zofran, I independently interpreted the patient's EKG performed on 03/12/2025 at 2340. On my interpretation, EKG demonstrates normal sinus rhythm, ventricular rate 81 bpm, normal axis, normal QRS interval, normal ST segments, no STEMI. On my independent interpretation CT imaging of the brain without contrast does not demonstrate any acute intracranial hemorrhage or findings of cerebral edema, . 01:25 00:28 Dr. zavala tt7 01:34 01:25 Dr. Meek tt7 bm8
--- NOTE | 2025-03-13 00:29 | ER ---
Nurse's Notes [facility] Name: Judith Evans Age: 64 yrs Sex: Female : 1960 Arrival Date: 03/12/2025 Time: 21:54 Bed 3 Private MD: Diagnosis: Altered mental status, unspecified;Unspecified nystagmus;Ataxia, unspecified;Slurred speech;Alton coma scale score 3-8, unspecified time Presentation: 03/12 22:04 Chief complaint: Patient states: PT STATES SHE BEGAN FEELING MORE UNSTEADY THAT NORMAL br2 AND FEELS LIKE "EVERYTHING IS SHAKING" THIS ALL BEGAN AT 1PM TODAY. Coronavirus screen: Client denies travel out of the [place] in the last 14 days. Ebola Screen: Patient denies exposure to infectious person. Initial Sepsis Screen: Does the patient meet any 2 criteria? No. Patient's initial sepsis screen is negative. Does the patient have a suspected source of infection? No. Patient's initial sepsis screen is negative. Risk Assessment: Do you want to hurt yourself or someone else? Patient reports no desire to harm self or others. Onset of symptoms was March 12, 2025 at 13:00. 22:04 Method Of Arrival: Wheelchair br2 22:04 Acuity: MIGUELITO 3 br2 03/13 01:33 No acute neurological deficit is noted. Pre-hospital glucose is not applicable to this bm8 patient. Triage Assessment: 03/12 22:07 The onset of the patients symptoms was March 12, 2025 at 13:00. General: Appears br2 uncomfortable, Behavior is anxious. Pain: Denies pain. Neuro: Reports UNSTEADY GAIT . Stroke Activation: Physician: ED Attending; Name: ; Notified At: ; Arrived At: Physician: Mid-Level Provider; Name: ; Notified At: ; Arrived At: Physician: [not used]; Name: ; Notified At: ; Arrived At: Physician: [not used]; Name: ; Notified At: ; Arrived At: Physician: [not used]; Name: ; Notified At: ; Arrived At: 03/13 01:33 not activated bm8 Historical: - Allergies: 03/12 22:07 No Known Allergies; br2 - PMHx: 22:07 Chronic obstructive lung disease; Pneumonia; RLS; br2 - Immunization history:: Adult Immunizations up to date. - Infectious Disease History:: Denies. - Social history:: Smoking status: Reported history of juuling and/or vaping. Patient uses alcohol, weekly. Patient/guardian denies using street drugs. Screenin:11 [facility] ED Fall Risk Assessment (Adult) History of falling in the last 3 months, bm8 including since admission No falls in past 3 months (0 pts) Confusion or Disorientation No (0 pts) Intoxicated or Sedated No (0 pts) Impaired Gait Yes (1 pt) Mobility Assist Device Used No (0 pt) Altered Elimination No (0 pt) Score/Fall Risk Level 0 - 2 = Low Risk Oriented to surroundings, Maintained a safe environment, Educated pt \\T\\ family on fall prevention, incl call for assistance when getting out of bed, Assessed \\T\\ reinforced patient's understanding of fall precautions, Hourly rounding (assess needs \\T\\ fall precautionary measures) done, Used ambulatory aids as needed (educated on \\T\\ assisted with), Used gait belt as appropriate. Abuse screen: Denies threats or abuse. Nutritional screening: No deficits noted. Tuberculosis screening: No symptoms or risk factors identified. Assessment: 22:13 VAN Scoring: Arm Drift: Patients demonstrates NO arm weakness. Patient is VAN Negative. bm8 Visual Disturbance: No visual disturbance noted. Aphasia: No aphasia noted. Neglect: No neglect noted. [place] Swallow Protocol Exclusion Criteria: Unable to remain alert for testing: No NPO for medical/surgical reason by provider order No Head-of-bed restricted <30 degrees No thin liquids due to preexisting dysphagia/baseline modified diet thickened liquids No Exclusion Criteria Result: Proceed Brief Cognitive Screen What is your name? Normal, Where are you right now? Normal, What year is it? Normal. Oral Mechanism Examination Facial Symmetry: Normal, Motion: Normal, Lip Closure: Normal, Oral Mechanism Result: Normal. 3 oz Water Swallow Challenge: Pt able to drink all water without stopping, coughing, choking or throat clearing: Yes Result: JOANNA HACKETT Notified: Mikey Pool DO. TNKase (Tenecteplase) Screening: Not Applicable. 23:40 Reassessment: This RN went to go check on pt due to monitor reading hypotensive mf3 systolic 85 and O2 sat 86 room air. This RN sternal rubbed pt and got no response. This RN notified MD Chloe and DIPTI Estrada. and charge and Kendell RN at bedside. 03/13 00:07 Reassessment: Preparing to intubate pt. MD Corine, respiratory, kendell, RN, jesus alberto estrada RN, emeterio RN, and emanuel RN at bedside. 00:09 Reassessment: 100mg Ketmaine given. mf3 00:10 Reassessment: 100mg rocuronium given. mf3 00:11 Reassessment: 7.0 ETT, 22 at the lip. mf3 00:12 Reassessment: Equal breathe sounds and color change assessed and confirmed by jesus alberto Pool MD. 00:17 Reassessment: 16fr OG tube right of the mouth. mf3 00:59 Reassessment: report given to DIPTI Tran \\T\\ [facility]. bm8 01:30 Reassessment: Patient appears in no apparent distress at this time. Patient and/or bm8 family updated on plan of care and expected duration. Pain level reassessed. Vital Signs: 03/12 22:04 BP 182 / 90; Pulse 91; Resp 18; Temp 98.4; Pulse Ox 96% on R/A; Weight 48.08 kg; Height br2 5 ft. 1 in. ; Pain 0/10; 22:13 BP 109 / 66; Pulse 75; Resp 18; Temp 98.4; Pulse Ox 95% ; Pain 0/10; bm8 23:58 BP 88 / 46; Pulse 52; Resp 14; Pulse Ox 100% on 2 lpm NC; 3 03/13 00:11 BP 87 / 45; Pulse 70; Resp 21; Pulse Ox 100% on ETT ambu; mf3 00:15 BP 223 / 116; Pulse 95; Resp 17; Pulse Ox 100% on ETT vent; mf3 00:30 BP 198 / 89; Pulse 88; Resp 14; Pulse Ox 100% on ETT vent; mf3 00:45 BP 172 / 80; Pulse 73; Resp 14; Pulse Ox 100% on ETT vent; mf3 01:14 BP 174 / 97; Pulse 70; Resp 17; Temp 98.4; Pulse Ox 100% on ETT vent; Pain 0/10; bm8 03/12 22:04 Body Mass Index 20.03 (48.08 kg, 154.94 cm) br2 03/12 22:04 Pain Scale: Adult br2 22:13 Pain Scale: Adult bm8 01:14 Pain Scale: Adult bm8 Alton Coma Score: 03/12 22:11 Eye Response: spontaneous(4). Motor Response: obeys commands(6). Verbal Response: bm8 oriented(5). Total: 15. NIH Stroke Scale Scores: 22:13 NIHSS Score: 0 bm8 ED Course: 21:58 Patient arrived in ED. gm2 22:01 Mikey Pool DO is Attending Physician. tt7 22:07 Triage completed. br2 22:07 Arm band placed on right wrist. br2 22:11 Emeterio Davis, DIPTI is Primary Nurse. bm8 22:11 Patient has correct armband on for positive identification. Placed in gown. Bed in low bm8 position. Call light in reach. Side rails up X 1. Client placed on continuous cardiac and pulse oximetry monitoring. NIBP monitoring applied. teletypesetter monitor on. Pulse ox on. NIBP on. Door closed. Noise minimized. Warm blanket given. Pillow given. Verbal reassurance given. Head of bed elevated. 22:11 No provider procedures requiring assistance completed. Initial lab(s) drawn, by ED bm8 staff, sent to lab. EKG done, by ED staff, reviewed by Mikey Pool DO. Inserted saline lock: 20 gauge in right forearm, using aseptic technique. Blood collected. Flushed with 10 mL NS. Patient maintains SpO2 saturation greater than 95% on room air. 23:43 CT Head Angio In Process Unspecified. EDMS 23:44 CT Neck Angio In Process Unspecified. EDMS 23:44 CT Stroke Brain w/o Contrast In Process Unspecified. EDMS 03/13 00:10 Chest Single View In Process Unspecified. EDMS 00:11 Assisted provider with intubation using 7.0 mm ETT via oral route. ET tube secured at mf3 lips. Intubated by Mikey Pool DO Placement verified by CO2 detector w/ + color change, auscultating bilateral breath sounds, Patient tolerated well. 22 at the lip. 00:17 NGT: inserted 16 Fr. other oral verified placement of air over stomach, to intermittent mf3 suction. Returned gastric contents. Patient tolerated well. Inserted by DIPTI Heller. 00:32 \\T\\ 0024 Initiated transfer with [facility] at [facility], Pt auto-accepted by Dr. Meek to rv1 [facility] RM [id number]. Forest to call back with Neuro for doc to doc. 00:37 XRAY Chest (1 view) In Process Unspecified. EDMS 00:41 Inserted saline lock: 20 gauge in left forearm, using aseptic technique. mf3 01:02 [facility] to transfer, Avani gave 10 min ETA. rv1 01:08 Acevedo cath inserted, using sterile technique, 16 Fr., by ED staff, balloon inflated, to bm8 gravity drainage, urine specimen collected. Patient tolerated well. 01:30 Provided Education on: family on need for transfer. bm8 01:30 Patient transferred, IV remains in place. bm8 Administered Medications: 03/12 22:11 Drug: Ativan IVP 0.5 mg IVP once Route: IVP; Site: right forearm; bm8 03/13 01:17 Follow up: Response: No adverse reaction bm8 03/12 22:48 Drug: Droperidol IVP 1.25 mg IVP once Route: IVP; Site: right forearm; bm8 03/13 01:17 Follow up: Response: No adverse reaction bm8 03/12 22:48 Drug: Ondansetron IVP 4 mg IVP once; over 2 minutes Route: IVP; Site: right forearm; bm8 03/13 01:17 Follow up: Response: No adverse reaction bm8 00:00 Drug: Naloxone IVP 0.4 mg IVP once Route: IVP; Site: right antecubital; mf3 01:16 Follow up: Response: No adverse reaction bm8 00:00 Drug: NS 0.9% IV 1000 ml IV at 1000 ml once; to be given as a bolus over 60 minutes mf3 Route: IV; Rate: 1000 ml; Site: right antecubital; 01:16 Follow up: Response: No adverse reaction; IV Status: Completed infusion bm8 00:09 Drug: Ketamine IVP 100 mg IVP once Route: IVP; Site: right hand; mf3 01:16 Follow up: Response: No adverse reaction bm8 00:10 Drug: Rocuronium IVP 100 mg IVP once Route: IVP; Site: right hand; mf3 01:15 Follow up: Response: No adverse reaction bm8 00:27 Drug: Midazolam IVP or IV 0.01 mg/kg/h IV at calculated rate See Administration mf3 Instructions; (Standard concentration: 100 mg / 100 mL NS); Recommended max rate 0.1 mg/kg/hr; Titrate 0.01 mg/kg/hr as often as every 30 minutes to achieve goal (see titration policy); Goal parameter RASS 0 to -2 Route: IV; Rate: calculated rate; Site: right forearm; 01:16 Follow up: Response: No adverse reaction; IV Status: Infusion continued upon transfer bm8 00:32 CANCELLED (Other Intervention Used): [id number] mg IVP once tt7 00:45 Drug: Keppra IV 2000 mg IV at bolus once Route: IV; Rate: bolus; Site: left forearm; mf3 01:15 Follow up: Response: No adverse reaction; IV Status: Completed infusion bm8 Medication: 03/12 22:11 VIS not applicable for this client. bm8 Point of Care Testing: Blood Glucose: 22:07 Blood Glucose: 94 mg/dL; br2 Ranges: Outcome: 03/13 00:28 ER care complete, transfer ordered by MD. tt7 01:30 Transferred by helicopter to [facility], Transfer form completed. bm8 X-rays sent w/ patient. 01:30 Condition: stable 01:30 Instructed on follow up and referral plans. the need for transfer, no drinking with medication, no driving heavy equipment, medication usage, safety practices, Demonstrated understanding of instructions, follow-up care, medications, 01:34 Patient left the ED. bm8 NIH Stroke Scale - NIH Stroke Score Date: 03/12/2025 Time: 22:13 Total Score = 0 10. Dysarthria (speech clarity - read or repeat words) - 0(Normal) 11. Extinction and Inattention (visual/tactile/auditory/spatial/personal) - 0(No abnormality) 1a. Level of Consciousness (LOC) - 0(Alert) 1b. Level of Consciousness (LOC) (Month \\T\\ Age) - 0(Both) 1c. LOC Commands (Open \\T\\ Closes Eyes/Skimmer Reverberatory) - 0(Both) 2. Best Gaze (Lateral Gaze Paresis) - 0(Normal) 3. Visual Field Loss - 0(No visual loss) 4. Facial Palsy - 0(Normal) 5a. Left Arm: Motor (10-second hold) - 0(No drift) 5b. Right Arm: Motor (10-second hold) - 0(No drift) 6a. Left Leg: Motor (5-second hold - always test supine) - 0(No drift) 6b. Right Leg: Motor (5-second hold - always test supine) - 0(No drift) 7. Limb Ataxia (finger/nose \\T\\ heel/moseley - test with eyes open) - 0(Absent) 8. Sensory Loss (pinprick arms/legs/face) - 0(Normal) 9. Best Language: Aphasia (description/naming/reading) - 0(No aphasia) Initials: bm8 Signatures: Dispatcher [employer] EDCaroline Gonzalez rv1 Candelaria Quiroz gm2 Emeterio Davis, RN RN bm8 Natalie Manrique, DIPTI RN br2 Tawana Cunningham RN RN mf3 Mikey Pool DO DO tt7 Corrections: (The following items were deleted from the chart) 00:27 03/12 22:13 NIHSS Score: 0 bm8 3 03/13 00:30 00:10 Reassessment: Preparing to intubate pt. MD Corine, respiratory, mf3 kendell RN, antalie RN, emeterio, RN, and this RN at bedside 3
[2025-03-13 00:40] VITALS: O2SAT 100
[2025-03-13] MEDS ORDERED: LEVETIRACETAM 500 MG/5 ML VIAL IV ONE (00:42)
[2025-03-13] MEDS ORDERED: NA CHLORIDE 0.9% 100 ML ONE (00:42)
--- NOTE | 2025-03-13 00:43 | RAD REPORT ---
EXAM: XR Chest, 1 View FACILITY: [facility] CLINICAL HISTORY: 64 years, Female; [place] TECHNIQUE: Frontal view of the chest. COMPARISON: March 30, 2021 chest x-ray FINDINGS: Lungs: Perihilar vascular prominence. Mild interstitial prominence. No consolidation. Pleural space: Unremarkable. No pneumothorax. Heart: Unremarkable. No cardiomegaly. Mediastinum: Unremarkable. Normal mediastinal contour. Bones/joints: Unremarkable. No acute fracture. IMPRESSION: Perihilar vascular prominence. Mild interstitial prominence. Electronically signed by: Anaid Davenport MD 03/13/2025 12:21 AM CDT RP H Due to temporary technical issues with the [employer] reporting system, reports are being isaias d by the in-house radiologist without review as a courtesy to ensure prompt reporting the interpreting radiologist is fully responsible for the content of the report. Transcribed Date/Time: 03/13/2025 12:43 AM
[2025-03-13 01:05] LABS: Thyroid Stimulating Hormone 2.7 uIU/mL (0.358-3.740)
[2025-03-13 01:16] LABS: Arterial Blood Carboxyhemoglob 2.3 % (0.0-1.5); Blood Gas Oxyhemoglobin 96.8 % (94.0-97.0); Blood O2 Saturation 99.9 % (92.0-98.5)
[2025-03-13 01:17] LABS: Blood Gas Inspired Oxygen 100.0 %
[2025-03-13 01:44] LABS: METHAMPHETAM NEGATIVE (NEGATIVE); THC Cannibis POSITIVE (NEGATIVE)
[2025-03-13 01:55] VITALS: TEMP 98.4
[2025-03-13 02:13] VITALS: BP 174/97
--- NOTE | 2025-03-13 06:29 | RAD REPORT ---
EXAM DESCRIPTION: Chest Single View CLINICAL HISTORY: POST ETT TECHNIQUE: AP chest COMPARISON: None available for comparison FINDINGS: ET tube at approximately 4 cm from the level of the miley. NG tube in the stomach. The side port is at the level of the esophagogastric junction. NG tube should be advanced further at least 5 cm. Cardiomegaly. Perihilar interstitial prominence with hazy airspace disease suspicious for pulmonary edema. Atelectatic changes and or pleuroparenchymal scarring in the right midlung IMPRESSION: 1. ET tube at approximately 4 cm from the level of the miley. 2. NG tube in the stomach. The side port is at the level of the esophagogastric junction. NG tube s hould be advanced further at least 5 cm. 3. Cardiomegaly with perihilar interstitial prominence and hazy airspace disease suspicious for pul monary edema. Electronically signed by: Cholo Armstrong MD 03/13/2025 12:49 AM CDT RP Due to temporary technical issues with the [employer]ACS[employer] reporting system, reports are being isaias d by the in-house radiologist without review as a courtesy to ensure prompt reporting the interpreting radiologist is fully responsible for the content of the report. Transcribed Date/Time: 03/13/2025 6:29 AM
== END 2025-03-13 01:34 | disposition short-term general hospital (02) ==
LOC: ER 21:54
DX: R41.82 Altered mental status, unspecified (principal); R47.81 Slurred speech; H55.00 Unspecified nystagmus; R27.0 Ataxia, unspecified; J44.9 Chronic obstructive pulmonary disease, unspecified
CPT/HCPCS: 93005; 85025; 36415; 85610; 82947; 85730; 84443; 84484; 84439; 80053; 80307; 70496; 70498; 70450; 71045 ×2; 31500; 51702; 43753; 99285; 82077; 82805; 94002; Q9967; J3490 ×2; J1953; J2250; J2312; J2405; J1790; J7030